=== PATIENT | female | born 1935 | race Caucasian/White ===

== ENCOUNTER 2016-10-31 12:24 | Outpatient (CLI) ==
[2016-10-31 12:30] LABS: BILIRUBIN,URINE 2+ (NEGATIVE); KETONES,URINE 1+ (NEGATIVE); LEUKOCYTE ESTERASE ,URINE Negative (NEGATIVE); NITRITE,URINE Negative (NEGATIVE); PROTEIN,URINE Trace (NEGATIVE); URINE, BLOOD Negative (NEGATIVE)
[2016-10-31 12:36] LABS: ADD URINE MICROSCOPIC YES
[2016-10-31 12:37] LABS: BACTERIA,URINE TRACE (NOT PRESENT)
== END 2016-10-31 12:25 | disposition home or self-care (01) ==
LOC: NONPT 12:24
PROVIDERS: ATTEND Family Medicine
DX: R33.9 Retention of urine, unspecified (principal)
CPT/HCPCS: 81001

== ENCOUNTER 2016-11-29 11:52 | Outpatient (CLI) ==
[2016-11-29 16:44] VITALS: BMI 27.6
== END 2016-11-29 11:53 | disposition home or self-care (01) ==
LOC: AMBL 11:52
PROVIDERS: ATTEND Internal Medicine
DX: R33.9 Retention of urine, unspecified (principal); F03.90 Unspecified dementia, unspecified severity, without behavioral disturbance, psychotic disturbance, mood disturbance, and anxiety; I10 Essential (primary) hypertension; Z87.09 Personal history of other diseases of the respiratory system

== ENCOUNTER 2016-11-29 12:03 | Inpatient (IN) ==
[2016-11-29 13:35] LABS: BASOPHILS # (AUTO) 0.1 K/uL (0-0.2); BASOPHILS % (AUTO) 0.9 % (0.0-3.0); EOSINOPHILS # (AUTO) 0.1 K/ul (0.0-0.7); EOSINOPHILS % (AUTO) 0.6 % (0.0-7.0); HEMATOCRIT 40.2 % (37.0-47.0); HEMOGLOBIN 13.5 g/dl (12.0-16.0); IMMATURE GRANULOCYTE % (AUTO) 0.4 % (0.0-5.0); LYMPHOCYTES # (AUTO) 3.7 K/uL (0.60-3.4); LYMPHOCYTES % (AUTO) 46.6 (10.0-50.0); MEAN CORPUSCULAR HEMOGLOBIN 28.4 pg (27.0-31.0); MEAN CORPUSCULAR HGB CONC 33.6 (31.8-35.4); MEAN CORPUSCULAR VOLUME 84.5 fl (81.0-99.0); MONOCYTES # (AUTO) 0.7 K/uL (0.4-2.0); MONOCYTES % (AUTO) 9.1 (0-10); NEUTROPHILS # (AUTO) 3.4 K/ul (2.0-6.9); NEUTROPHILS % (AUTO) 42.4; PLATELET COUNT 302 10^3/uL (140-440); RED BLOOD COUNT 4.76 10^6/ul (4.20-5.40); WHITE BLOOD COUNT 7.94 K/ul (4.6-10.2)
--- NOTE | 2016-11-29 13:44 | ED.PDOC ---
General ED Provider: Dr. BESSIE SUAREZ Chief Complaint: Urinary Problem Stated Complaint: low urine output Time Seen by Physician: 12:10 Mode of Arrival: Ambulance Information Source: Family, Halfway, EMT Exam Limitations: No limitations Primary Care Provider: MAYCOL MCDONALD Nursing and Triage Documentation Reviewed and Agree: Yes Complaint Exam - Complaint/Exam Onset/Duration: 1 day almost no urine out put pain is declined Symptoms Are: Still present Timing: Constant Initial Severity: Mild Current Severity: Mild Location of Pain: Reports: None Aggravating: Reports: Urination Alleviating: Reports: None Associated Signs and Symptoms: Reports: Decreased urine output. Denies: Diaphoresis, Back pain, Fever, Hematuria, Dysuria, Constipation, Blood in stool , Rectal pain, Appetite change, Nausea, Vomiting, Increased urine frequency, Increased thirst, Decreased activity, Lethargy, Abdominal Pain, Bubble bath use , Vaginal bleeding, Vaginal discharge, Genital swelling, Genital blisters, Retained foreign body Ectopic Risk Factors: Reports: None Ovarian Torsion Risk Factors: Reports: None Surgical Obstruction Risk Factors: Reports: None RH Status: Unknown Related Surgical History: Reports: None Abdominal Findings: Present: None Differential Diagnoses: UTI Review of Systems - Review Of Systems Constitutional: Reports: No symptoms Eyes: Reports: No symptoms Ears, Nose, Mouth, Throat: Reports: No symptoms Respiratory: Reports: No symptoms Cardiac: Reports: No symptoms GI: Reports: No symptoms : Reports: Dysuria Musculoskeletal: Reports: No symptoms Skin: Reports: No symptoms Neurological: Reports: No symptoms Endocrine: Reports: No symptoms Hematologic/Lymphatic: Reports: No symptoms All Other Systems: Reviewed and Negative Past Medical History - Past Medical History Previously Healthy: Yes Endocrine: Reports: Hypothyroid Cardiovascular: Reports: Hypertension Respiratory: Reports: None Hematological: Reports: None Gastrointestinal: Reports: None Genitourinary: Reports: None Neuro/Psych: Reports: None Musculoskeletal: Reports: None Cancer: Reports: None Last Menstrual Period: NA - Surgical History General Surgical History: Reports: None - Family History Family History: Reports: None - Social History Smoking Status: Former smoker Hx Substance Use: No Alcohol Screening: None Physical Exam - Physical Exam Appearance: Ill-appearing Ill-appearing: Moderate Pain Distress: Mild Eyes: RAH, EOMI, Conjunctiva clear ENT: Dry mucosa Respiratory: Airway patent, Breath sounds clear, Breath sounds equal, Respirations nonlabored Cardiovascular: RRR, Pulses normal, No rub, No murmur GI/: Soft, Nontender, No masses, Bowel sounds normal, No Organomegaly Musculoskeletal: Normal strength, ROM intact, No edema, No calf tenderness Skin: Warm, Dry, Normal color Neurological: Sensation intact, Motor intact, Reflexes intact, Cranial nerves intact, Alert, Oriented Psychiatric: Affect appropriate, Mood appropriate Physician Notification - Case Discussed Physician Notified: [email or web address] 2:15 pm Admit To: Inpatient Critical Care Note - Critical Care Note Total Time (mins): 0 Course - Course Hematology/Chemistry: 11/29/16 13:26 Orders, Labs, Meds: Lab Review 11/29/16 13:26 WBC 7.94 RBC 4.76 Hgb 13.5 Hct 40.2 MCV 84.5 MCH 28.4 MCHC 33.6 RDW Coeff of [place] 16.1 H Plt Count 302 Immature Gran % (Auto) 0.4 Neut % (Auto) 42.4 Lymph % (Auto) 46.6 [place] % (Auto) 9.1 Eos % (Auto) 0.6 Baso % (Auto) 0.9 Immature Gran # (Auto) 0.0 Neut # 3.4 Lymph # 3.7 H [place] # 0.7 Eos # 0.1 Baso # 0.1 Orders Category Date Time Status EKG-(ED ONLY) Stat CARDIO 11/29/16 12:13 Completed Bladder [ED BLADDER SCAN] .ONCE EMERGENCY 11/29/16 12:22 Active BLOOD CULTURE Stat LAB 11/29/16 13:26 Received CBC W/ AUTO DIFF Stat LAB 11/29/16 13:26 Completed COMPREHENSIVE METABOLIC PANEL Stat LAB 11/29/16 13:26 Received LACTIC ACID Stat LAB 11/29/16 13:26 Received PROCALCITONIN Stat LAB 11/29/16 13:26 Received URINALYSIS C & S IF INDICATED Stat LAB 11/29/16 13:37 Ordered Vital Signs: Temp Pulse Resp BP Pulse Ox 11/29/16 12:05 98 F 75 16 117/74 98 Departure - Departure Time of Disposition: 14:20 Disposition: ADMITTED INPATIENT Discharge Problem: Urinary symptoms, Dehydration Instructions: Dehydration (ED) Condition: Good Pt referred to PMD for follow-up: Yes (admitt) Additional Instructions: Please call your Family Physician as soon as possible to schedule a follow-up appointment. Allergies/Adverse Reactions: Allergies No Known Allergies Allergy (Unverified 11/29/16 12:05) Home Medications: Ambulatory Orders Aspirin 81 mg PO DAILY 11/29/16 Bisacodyl [Dulcolax] 10 mg RC DAILY PRN 11/29/16 Carbidopa/Levodopa [Sinemet 25-250] 1 tab PO TID 11/29/16 Cholecalciferol (Vitamin D3) [Vitamin D] 50,000 unit PO WEEKLY 11/29/16 Docusate Sodium 100 mg PO DAILY 11/29/16 Donepezil HCl [Aricept] 5 mg PO BEDTIME 11/29/16 Levothyroxine Sodium [Synthroid] 50 mcg PO QDAC 11/29/16 Megestrol Acetate [Megace Es] 625 mg PO DAILY 11/29/16 Metoprolol Tartrate [Lopressor] 50 mg PO BID 11/29/16 Mirtazapine [Remeron] 15 mg PO BEDTIME 11/29/16 Ondansetron HCl [Zofran] 4 mg PO Q6H PRN 11/29/16 Polyethylene Glycol 3350 [Miralax] 17 gm PO BID 11/29/16 Potassium Chloride [Micro-K Cap] 10 meq PO DAILY 11/29/16 Prednisone 5 mg PO DAILYWM 11/29/16 Risperidone [Risperdal] 0.5 mg PO BEDTIME 11/29/16 Rivaroxaban [Xarelto] 20 mg PO DAILY 11/29/16 Simvastatin 40 mg PO DAILY 11/29/16 Disposition Discussed With: Patient, Family
[2016-11-29 13:49] LABS: BILIRUBIN,URINE 1+ (NEGATIVE); KETONES,URINE 1+ (NEGATIVE); LEUKOCYTE ESTERASE ,URINE 1+ (NEGATIVE); NITRITE,URINE Negative (NEGATIVE); PROTEIN,URINE 1+ (NEGATIVE); URINE, BLOOD Negative (NEGATIVE)
[2016-11-29 13:54] LABS: ALBUMIN 2.5 g/dL (3.4-5.0); ALBUMIN/GLOBULIN RATIO 0.69; ANION GAP 17.7; BILIRUBIN,TOTAL 0.45 mg/dL (0.00-1.20); BUN/CREATININE RATIO 13.75; CALCIUM 9.1 mg/dL (8.2-10.2); CREATININE 0.8 mg/dL (0.60-1.30); POTASSIUM 3.7 mmol/L (3.5-5.10); TOTAL PROTEIN 6.1 g/dL (5.8-8.1)
[2016-11-29 13:58] LABS: ADD URINE MICROSCOPIC YES
[2016-11-29 14:00] LABS: BACTERIA,URINE 1+ (NOT PRESENT)
[2016-11-29] MEDS ORDERED: SODIUM CHLORIDE 1,000 ML IV SCH ×2 (14:00→19:20)
[2016-11-29] MEDS ORDERED: ROCEPHIN 1 GM in SODIUM CHLORIDE 50 ML IV STA (14:43)
[2016-11-29] MEDS ORDERED: COCAINE 4% TP STA (14:44)
[2016-11-29] MEDS ORDERED: ROCEPHIN ONE (14:55)
[2016-11-29 16:44] VITALS: BMI 27.6
[2016-11-29] MEDS ORDERED: SINEMET 25-100 ONE (17:46)
[2016-11-29] MEDS: SINEMET 25-250 PO SCH ×2 (18:19→21:26)
[2016-11-29 20:44] LABS: TROPONIN I 0.027 ng/ml (0.0000-0.4000)
[2016-11-29] MEDS: LOPRESSOR PO SCH (21:25)
[2016-11-30 05:13] LABS: BASOPHILS # (AUTO) 0.1 K/uL (0-0.2); BASOPHILS % (AUTO) 0.8 % (0.0-3.0); EOSINOPHILS # (AUTO) 0.1 K/ul (0.0-0.7); EOSINOPHILS % (AUTO) 0.8 % (0.0-7.0); HEMATOCRIT 37.4 % (37.0-47.0); HEMOGLOBIN 12.5 g/dl (12.0-16.0); IMMATURE GRANULOCYTE % (AUTO) 0.6 % (0.0-5.0); LYMPHOCYTES # (AUTO) 2.7 K/uL (0.60-3.4); MEAN CORPUSCULAR HGB CONC 33.4 (31.8-35.4); MEAN CORPUSCULAR VOLUME 83.9 fl (81.0-99.0); MONOCYTES # (AUTO) 0.7 K/uL (0.4-2.0); MONOCYTES % (AUTO) 10.6 (0-10); NEUTROPHILS % (AUTO) 46.2; PLATELET COUNT 272 10^3/uL (140-440); RED BLOOD COUNT 4.46 10^6/ul (4.20-5.40); WHITE BLOOD COUNT 6.54 K/ul (4.6-10.2)
[2016-11-30] MEDS: SYNTHROID PO SCH (05:35)
[2016-11-30 05:46] LABS: ALANINE AMINOTRANSFERASE < 6 U/L (12-78); ALBUMIN 2.1 g/dL (3.4-5.0); ALBUMIN/GLOBULIN RATIO 0.68; ALKALINE PHOSPHATASE 58 U/L (53-141); ANION GAP 15.5; ASPARTATE AMINO TRANSFERASE 17 U/L (15-37); BLOOD UREA NITROGEN 12 mg/dL (7-18); BUN/CREATININE RATIO 15.38; CALCIUM 8.4 mg/dL (8.2-10.2); CARBON DIOXIDE 24 mmol/L (23-31); CHLORIDE 103 mmol/L (98-107); CREATININE 0.78 mg/dL (0.60-1.30); GLUCOSE 69 mg/dL (82-115); POTASSIUM 3.5 mmol/L (3.5-5.10); SODIUM 139 mmol/L (136-145); TOTAL PROTEIN 5.2 g/dL (5.8-8.1)
[2016-11-30 05:47] LABS: TROPONIN I 0.028 ng/ml (0.0000-0.4000)
[2016-11-30] MEDS ORDERED: NON-FORMULARY MEDICATION (Rivaroxaban [Xarelto] 20 MG) PO SCH (09:00)
[2016-11-30] MEDS ORDERED: ROCEPHIN 1 GM in SODIUM CHLORIDE 50 ML IV SCH (09:00)
[2016-11-30] MEDS ORDERED: MEGESTROL ACETATE 625 MG PO SCH (09:00)
[2016-11-30] MEDS: SINEMET 25-250 PO SCH ×3 (09:02→21:48)
[2016-11-30] MEDS: XARELTO PO SCH (09:03)
[2016-11-30] MEDS: ZOCOR PO SCH (09:03)
[2016-11-30] MEDS: ASPIRIN CHEWABLE PO SCH (09:03)
[2016-11-30] MEDS: MICRO-K CAP PO SCH (09:04)
[2016-11-30] MEDS: SODIUM CHLORIDE 1,000 ML IV SCH (09:07)
[2016-11-30] MEDS: MEGACE PO SCH (10:24)
--- NOTE | 2016-11-30 10:24 | PN ---
DATE OF SERVICE: 11/29/16 SUBJECTIVE: The patient is an 81 year old white female seen in the emergency room. The patient needs to be admitted because of strong possibility of UTI with dehydration. The patient is 81 year old female; moved from [place], [place] in October. The patient's son-in-law is in the room. The patient is demented but alert. She is a former smoker. The patient has history of coronary artery disease, dementia, atrial fibrillation. EKG showed shows atrial fibrillation with irregular rate. REVIEW OF SYSTEMS: CONSTITUTIONAL: No night sweats. No fatigue, malaise, lethargy. No fever or chills. HEENT: Eyes: No visual changes. No eye pain. No eye discharge. ENT: No runny nose. No epistaxis. No sinus pain. No sore throat. No odynophagia. No congestion. RESPIRATORY: No cough, no congestion. No hemoptysis. No shortness of breath. CARDIOVASCULAR: No angina symptoms. No CHF symptoms. No atypical chest pain for CAD. No palpitations. No orthopnea. GASTROINTESTINAL: No abdominal pain. No nausea or vomiting. No diarrhea or constipation. No hematemesis. No hematochezia. GENITOURINARY: No urgency. No frequency. No dysuria. No hematuria. No obstructive symptoms. No discharge. No pain. No significant abnormal bleeding. MUSCULOSKELETAL: No musculoskeletal pain; no joint swelling. NEUROLOGICAL: No headache. No neck pain. No syncope. No seizures. No dizziness. PSYCHIATRIC: Not anxious. No depression. No suicidal thoughts. No homicidal thoughts. SKIN: No rash. No lesions. No wounds. ENDOCRINE: No unexplained weight loss. No weight gain. HEMATOLOGIC/LYMPHATIC: No anemia. No purpura. No petechiae. No prolonged or excessive bleeding. No palpable lymph nodes. PHYSICAL EXAMINATION: GENERAL: The patient is , lying/sitting in bed in no distress. VITAL SIGNS: Temperature 96.8, pulse 80, respiratory ate 15, blood pressure 130 /70. HEENT: Head normocephalic, atraumatic. Eyes: Extraocular muscles are intact. Pupils are equal, round and reactive to light and accommodation. Ears: No lesions. Nose appeared normal. Throat: No exudate or erythema. Mucosa Membrane dry. NECK: Supple. No JVD, no carotid bruit. No lymphadenopathy or thyromegaly. LUNGS:Decreased breath sounds but clear to auscultation. Percussion note normal. Chest symmetrical. HEART: S1, S2, no S3. No murmurs. No cyanosis or clubbing. No ascites. Pulses: Dorsalis pedis and posterior tibial pulses +1 to +2 both sides. ABDOMEN: Soft. Nontender. Bowel sounds active. No CVA tenderness. No mass felt. EXTREMITIES: No edema. Full range of motion of all extremities, equal. NEUROLOGIC: No focal deficit. Cranial nerves II through XII are grossly intact. No headache, no double vision or headache. SKIN: Dry. Intact. Turgor - normal. LYMPHATIC: No palpable lymph nodes/no lymphedema. MUSCULOSKELETAL: Normal joints with no swelling. Muscle tone is normal. ASSESSMENT: 1. Dehydration 2. UTI, The patient was sent from Shelter as Intake is very poor with poor urine output for past 48 hours likely cause of change in the patient's over status could be UTI. 3. Atrial fibrillation 4. Coronary artery disease 5. Dementia PLAN: 1. Give IV fluids 2. Rocephin The patient has not been able to walk for 6 months according to son-in-law. The patient's used to walk with walker but then her condition deteriorated. The place she was being taken care of in [place], [place] son-in-law and daughter didn't like it so they moved her down here to [place]. CONDITION: Stable. TIME SPENT: More than 30 minutes. Plan and coordination of the patient's care discussed in the presence of nurse. JOSSELYN
[2016-11-30] MEDS: LOPRESSOR PO SCH ×2 (10:25→21:47)
--- NOTE | 2016-11-30 13:19 | PCM.PROG ---
Attending Provider: ATTENDING PROVIDER: Dr. KRISTIN BARRETO DATE OF SERVICE: 11/30/16 SUBJECTIVE: This 81 year old WHITE/ F was hospitalized 11/29/16. The patient is seen with Samantha, Nurse Practitioner. The patient is alert. She denies any nausea or vomiting. No fever. Urine culture pending. REVIEW OF SYSTEMS: CONSTITUTIONAL: Weakness. No night sweats. No fever or chills. HEENT: Eyes: No visual changes. No eye pain. No eye discharge. ENT: No runny nose. No epistaxis. No sinus pain. No odynophagia. No congestion. RESPIRATORY: No cough, no congestion. No hemoptysis. No shortness of breath. CARDIOVASCULAR: No angina symptoms. No CHF symptoms. No atypical chest pain for CAD. No palpitations. No orthopnea.. GASTROINTESTINAL: No abdominal pain. No nausea or vomiting. No diarrhea or constipation. No hematemesis. No hematochezia. GENITOURINARY: No urgency. No frequency. No dysuria. No hematuria. No obstructive symptoms. No discharge. No pain. No significant abnormal bleeding. MUSCULOSKELETAL: No musculoskeletal pain; no joint swelling. NEUROLOGICAL: Awake, alert, oriented to time, place and person. No headache. No neck pain. No syncope. No seizures. No dizziness. PSYCHIATRIC: Not anxious. No depression. No suicidal thoughts. No homicidal thoughts. SKIN: No rash. No lesions. No wounds. ENDOCRINE: No unexplained weight loss. No weight gain. HEMATOLOGIC/LYMPHATIC: No anemia. No purpura. No petechiae. No prolonged or excessive bleeding. No palpable lymph nodes. PHYSICAL EXAMINATION: GENERAL: The patient is awake, alert and oriented, lying in bed in no distress. VITAL SIGNS: Temperature 97.0 F, Pulse 75, Respiratory Rate 20, BP 116/75, Pulse Ox 97% HEENT: Head normocephalic, atraumatic. Eyes: Extraocular muscles are intact. Pupils are equal, round and reactive to light and accommodation. Ears: No lesions. Nose appeared normal. Throat: No exudate or erythema. NECK: Supple. No JVD, no carotid bruit. No lymphadenopathy or thyromegaly. LUNGS: Diminished breath sounds bilaterally. Clear to auscultation. Percussion note normal. Chest symmetrical. HEART: S1, S2, no S3. No murmurs. No cyanosis or clubbing. No ascites. Pulses: Dorsalis pedis and posterior tibial pulses +1 to +2 both sides. ABDOMEN: Soft. Non-tender. Bowel sounds active. No CVA tenderness. No mass felt. EXTREMITIES: No edema. Full range of motion of all extremities, equal. NEUROLOGIC: No focal deficit. Cranial nerves II through XII are grossly intact. No headache, no double vision or headache. SKIN: Not dry. Intact. Turgor-normal. LYMPHATIC: No palpable lymph nodes/no lymphedema. MUSCULOSKELETAL: Normal joints with no swelling. Muscle tone is normal. LAB REVIEW: 11/30/16 04:20 11/30/16 04:20 11/30/16 04:20: WBC 6.54, RBC 4.46, Hgb 12.5, Hct 37.4, MCV 83.9, MCH 28.0, MCHC 33.4, RDW Coeff of [place] 16.2 H, Plt Count 272, Immature Gran % (Auto) 0.6, Neut % (Auto) 46.2, Lymph % (Auto) 41.0, [place] % (Auto) 10.6 H, Eos % (Auto) 0.8 , Baso % (Auto) 0.8, Immature Gran # (Auto) 0.0, Neut # 3.0, Lymph # 2.7, [place] # 0.7, Eos # 0.1, Baso # 0.1, Sodium 139, Potassium 3.5, Chloride 103, Carbon Dioxide 24, Anion Gap 15.5, BUN 12, Creatinine 0.78, Estimated GFR (MDRD) 71.00 , BUN/Creatinine Ratio 15.38, Glucose 69 L, Calcium 8.4, Total Bilirubin 0.30, AST 17, ALT < 6 L, Alkaline Phosphatase 58, Total Creatine Kinase 22, Troponin I 0.0280, Total Protein 5.2 L, Albumin 2.1 L, Globulin 3.1, Albumin/Globulin Ratio 0.68 11/29/16 20:15: Total Creatine Kinase 22, Troponin I 0.0270 ASSESSMENT: 1. Dehydration/weakness 2. UTI PLAN: 1. Rocephin 1 gm IV q.24hr 2. Decrease IV fluids to 40 mL/hr 3. Resume Aricept 4. Resume Risperdal Plan and coordination of the patient's care discussed in the presence of Microbiology Technician and nurse. CONDITION: Stable SCRIBED BY: TAO NGUYEN Ch[employer] Pepper Grinder scribed while in presence of service performed by Dr. KRISTIN BARRETO/SAMANTHA KENNEDY APRN on 11/30/16 ([id number])
[2016-11-30] MEDS ORDERED: ARICEPT PO SCH (21:00)
[2016-11-30] MEDS: MIRALAX PO SCH (21:48)
[2016-12-01 05:46] LABS: BASOPHILS # (AUTO) 0.1 K/uL (0-0.2); BASOPHILS % (AUTO) 0.8 % (0.0-3.0); EOSINOPHILS # (AUTO) 0.1 K/ul (0.0-0.7); HEMATOCRIT 39.8 % (37.0-47.0); HEMOGLOBIN 13.3 g/dl (12.0-16.0); IMMATURE GRANULOCYTE % (AUTO) 0.7 % (0.0-5.0); LYMPHOCYTES # (AUTO) 2.6 K/uL (0.60-3.4); LYMPHOCYTES % (AUTO) 33.6 (10.0-50.0); MEAN CORPUSCULAR HGB CONC 33.4 (31.8-35.4); MEAN CORPUSCULAR VOLUME 83.8 fl (81.0-99.0); MONOCYTES # (AUTO) 0.8 K/uL (0.4-2.0); MONOCYTES % (AUTO) 10.8 (0-10); NEUTROPHILS # (AUTO) 4.1 K/ul (2.0-6.9); NEUTROPHILS % (AUTO) 53.1; PLATELET COUNT 258 10^3/uL (140-440); RED BLOOD COUNT 4.75 10^6/ul (4.20-5.40); WHITE BLOOD COUNT 7.65 K/ul (4.6-10.2)
[2016-12-01] MEDS: SYNTHROID PO SCH (06:06)
[2016-12-01 06:10] LABS: ALANINE AMINOTRANSFERASE < 6 U/L (12-78); ALBUMIN 2.3 g/dL (3.4-5.0); ALBUMIN/GLOBULIN RATIO 0.66; ALKALINE PHOSPHATASE 60 U/L (53-141); ANION GAP 18.1; ASPARTATE AMINO TRANSFERASE 15 U/L (15-37); BILIRUBIN,TOTAL 0.31 mg/dL (0.00-1.20); BLOOD UREA NITROGEN 11 mg/dL (7-18); BUN/CREATININE RATIO 12.94; CALCIUM 8.8 mg/dL (8.2-10.2); CARBON DIOXIDE 23 mmol/L (23-31); CHLORIDE 104 mmol/L (98-107); CREATININE 0.85 mg/dL (0.60-1.30); GLUCOSE 85 mg/dL (82-115); POTASSIUM 4.1 mmol/L (3.5-5.10); SODIUM 141 mmol/L (136-145); TOTAL PROTEIN 5.8 g/dL (5.8-8.1)
--- NOTE | 2016-12-01 06:47 | HP ---
DATE OF SERVICE: 11/29/16 HISTORY OF PRESENT ILLNESS: This is an 81-year-old female who is a patient at [place] of Dr. Malagon. The care home reported that she had had decreased appetite, weakness and decreased urine output for the past two days. When she arrived, labs were fairly normal. Kidney function was stable; however, her UA showed 3+ bacteria, blood and was nitrite positive. She was started on Rocephin 1 gm q.24hr. The patient is new to the area, she just moved here in October from [place], [place], because her daughter lives here. PAST MEDICAL HISTORY: Parkinson's syndrome Dementia Hypothyroidism Hypertension Restless leg syndrome Hypokalemia Atrial fibrillation Dyslipidemia SOCIAL HISTORY: The patient currently resides in [facility]. She does not smoke. She does not drink. Her past smoking history is unclear. She recently was able to walk until about 6 months ago due to advancing dementia and peripheral vascular disease, she is now in a wheelchair. REVIEW OF SYSTEMS: CONSTITUTIONAL: Decreased appetite. No night sweats. No fatigue, malaise, lethargy. No fever or chills. HEENT: Eyes: No visual changes. No eye pain. No eye discharge. ENT: No runny nose. No epistaxis. No sinus pain. No sore throat. No odynophagia. No ear pain. No congestion. RESPIRATORY: No cough, no congestion. No hemoptysis. No shortness of breath. CARDIOVASCULAR: No angina symptoms. No CHF symptoms. No atypical chest pain for CAD. No palpitations. No orthopnea. GASTROINTESTINAL: Positive for nausea, decreased appetite. No abdominal pain. No vomiting. No diarrhea or constipation. No hematemesis. No hematochezia. GENITOURINARY: Decreased urine output. No dysuria. No hematuria. No obstructive symptoms. No discharge. No pain. No significant abnormal bleeding. MUSCULOSKELETAL: Positive for leg weakness. No joint swelling. No redness. NEUROLOGICAL: The patient is alert, however not oriented. No headache. No neck pain. No syncope. No seizures. No dizziness. PSYCHIATRIC: Not anxious. No depression. No suicidal thoughts. No homicidal thoughts. SKIN: No rash. No lesions. No wounds. ENDOCRINE: No unexplained weight loss. No weight gain. HEMATOLOGIC/LYMPHATIC: No anemia. No purpura. No petechiae. No prolonged or excessive bleeding. No palpable lymph nodes. MEDICATIONS: Xarelto 20 mg p.o. daily Cholecalciferol 50,000 unit p.o. weekly Simvastatin 40 mg p.o. daily Risperidone 0.5 mg p.o. bedtime Remeron 15 mg p.o. bedtime Prednisone 5 mg p.o. daily with meal Potassium Chloride 10 mEq p.o. daily Polyethylene Glycol 17 gm p.o. b.i.d. Megace 625 mg p.o. daily Lopressor 50 mg p.o. b.i.d. Dulcolax 10 mg RC daily p.r.n. Docusate 100 mg p.o. daily Aspirin 81 mg p.o. daily Aricept 5 mg p.o. bedtime Zofran 4 mg p.o. q.6h p.r.n. Carbidopa/Levodopa one tab p.o. t.i.d. Levothyroxine 50 mcg p.o. q.d a.c. ALLERGIES: NKDA PHYSICAL EXAMINATION: VITAL SIGNS: Stable; temperature 97, heart rate 75, respirations 20, BP 116/75 , pulse ox 97%. HEENT: Head normocephalic, atraumatic. Eyes: Extraocular muscles are intact. Pupils are equal, round and reactive to light and accommodation. Ears: No lesions. Nose appeared normal. Throat: No exudate or erythema. NECK: Supple. No JVD, no carotid bruit. No lymphadenopathy or thyromegaly. LUNGS: Clear to auscultation with diminished breath sounds bilaterally, equal. No rhonchi, no rales. Percussion note normal. Chest symmetrical. HEART: Irregular rate and rhythm due to atrial fibrillation. S1, S2, no S3. Pulses: Dorsalis pedis and posterior tibial pulses +1 to +2 both sides. ABDOMEN: Soft. Nontender. Bowel sounds active times four quadrants. No CVA tenderness. No suprapubic tenderness. EXTREMITIES: No edema. No cyanosis. No joint swelling. No redness. Negative Sung's sign. NEUROLOGIC: The patient is alert, oriented to person however not to place or time. SKIN: Not dry. Intact. Turgor - normal. LYMPHATIC: No palpable lymph nodes/no lymphedema. MUSCULOSKELETAL: Normal joints with no swelling. Muscle tone is normal. LABS: Hemoglobin 12.5, hematocrit 37.4, platelets 272, white count 6.5. Sodium 139, potassium 3.5, BUN 12, creatinine 0.78, glucose 69. Urine culture is pending. ASSESSMENT: 1. DEHYDRATION 2. GENERALIZED WEAKNESS 3. ACUTE URINARY TRACT INFECTION 4. DEMENTIA 5. ATRIAL FIBRILLATION PLAN: 1. Will admit the patient. 2. Continue IV Rocephin 1 gm q.24hr. 3. IV fluids at 75 cc an hour. 4. Sodium Chloride. 5. Continue home medications. 6. Routine telemetry orders. 7. CBC, CMP daily. 8. Daily weights. 9. Regular diet. 10. Will follow closely. TIME SPENT: More than 70 minutes. MTDD
[2016-12-01] MEDS: MEGACE PO SCH (08:30)
[2016-12-01] MEDS: ASPIRIN CHEWABLE PO SCH (08:31)
[2016-12-01] MEDS: LOPRESSOR PO SCH (08:31)
[2016-12-01] MEDS: XARELTO PO SCH (08:31)
[2016-12-01] MEDS: MICRO-K CAP PO SCH (08:32)
[2016-12-01] MEDS: SINEMET 25-250 PO SCH ×2 (08:32→15:10)
[2016-12-01] MEDS: MIRALAX PO SCH (08:37)
[2016-12-01] MEDS: ZOCOR PO SCH (08:37)
[2016-12-01] MEDS ORDERED: LIDOCAINE 1 % AMP 5 ML (SUTURES) IM SCH (09:00)
[2016-12-01] MEDS ORDERED: ROCEPHIN IM SCH (09:00)
--- NOTE | 2016-12-01 09:50 | PCM.PROG ---
Attending Provider: [facility]ENDING [facility] DATE [facility]: 12/01/16 SUBJECTIVE: This 81 year old WHITE/ F was hospitalized 11/29/16. The patient is seen with Samantha, Nurse Practitioner. The patient is sitting in the chair, resting comfortably, has been afebrile. REVIEW OF SYSTEMS: CONSTITUTIONAL: Confusion. Weakness left leg. No night sweats. No fatigue, malaise, lethargy. No fever or chills. HEENT: Eyes: No visual changes. No eye pain. No eye discharge. ENT: No runny nose. No epistaxis. No sinus pain. No odynophagia. No congestion. RESPIRATORY: No cough, no congestion. No hemoptysis. No shortness of breath. CARDIOVASCULAR: No angina symptoms. No CHF symptoms. No atypical chest pain for CAD. No palpitations. No orthopnea.. GASTROINTESTINAL: No abdominal pain. No nausea or vomiting. No diarrhea or constipation. No hematemesis. No hematochezia. GENITOURINARY: No urgency. No frequency. No dysuria. No hematuria. No obstructive symptoms. No discharge. No pain. No significant abnormal bleeding. MUSCULOSKELETAL: No musculoskeletal pain; no joint swelling. NEUROLOGICAL: Alert and oriented to person only. No headache. No neck pain. No syncope. No seizures. No dizziness. PSYCHIATRIC: Not anxious. No depression. No suicidal thoughts. No homicidal thoughts. SKIN: No rash. No lesions. No wounds. ENDOCRINE: No unexplained weight loss. No weight gain. HEMATOLOGIC/LYMPHATIC: No anemia. No purpura. No petechiae. No prolonged or excessive bleeding. No palpable lymph nodes. PHYSICAL EXAMINATION: GENERAL: The patient is alert and oriented to person only, sitting in chair in no distress. VITAL SIGNS: Temperature 97.6 F, Pulse 73, Respiratory Rate 16, BP 129/80, Pulse Ox 96% HEENT: Head normocephalic, atraumatic. Eyes: Extraocular muscles are intact. Pupils are equal, round and reactive to light and accommodation. Ears: No lesions. Nose appeared normal. Throat: No exudate or erythema. NECK: Supple. No JVD, no carotid bruit. No lymphadenopathy or thyromegaly. LUNGS: Diminished breath sounds bilaterally. Clear to auscultation. Percussion note normal. Chest symmetrical. HEART: Irregular heart rate. S1, S2, no S3. No murmurs. No cyanosis or clubbing. No ascites. Pulses: Dorsalis pedis and posterior tibial pulses +1 to +2 both sides. ABDOMEN: Soft. Non-tender. Bowel sounds active. No CVA tenderness. No mass felt. EXTREMITIES: No edema. Full range of motion of all extremities, equal. NEUROLOGIC: No focal deficit. Cranial nerves II through XII are grossly intact. No headache, no double vision or headache. SKIN: Not dry. Intact. Turgor-normal. LYMPHATIC: No palpable lymph nodes/no lymphedema. MUSCULOSKELETAL: Normal joints with no swelling. Muscle tone is normal. LAB REVIEW: 12/01/16 05:15 12/01/16 05:15 12/01/16 05:15: WBC 7.65, RBC 4.75, Hgb 13.3, Hct 39.8, MCV 83.8, MCH 28.0, MCHC 33.4, RDW Coeff of [place] 16.0 H, Plt Count 258, Immature Gran % (Auto) 0.7, Neut % (Auto) 53.1, Lymph % (Auto) 33.6, [place] % (Auto) 10.8 H, Eos % (Auto) 1.0 , Baso % (Auto) 0.8, Immature Gran # (Auto) 0.1, Neut # 4.1, Lymph # 2.6, [place] # 0.8, Eos # 0.1, Baso # 0.1, Sodium 141, Potassium 4.1, Chloride 104, Carbon Dioxide 23, Anion Gap 18.1, BUN 11, Creatinine 0.85, Estimated GFR (MDRD) 64.00 , BUN/Creatinine Ratio 12.94, Glucose 85, Calcium 8.8, Total Bilirubin 0.31, AST 15, ALT < 6 L, Alkaline Phosphatase 60, Total Protein 5.8, Albumin 2.3 L, Globulin 3.5, Albumin/Globulin Ratio 0.66 ASSESSMENT: 1. DEHYDRATION, RESOLVED 2. GENERALIZED WEAKNESS 3. ACUTE URINARY TRACT INFECTION 4. DEMENTIA 5. ATRIAL FIBRILLATION PLAN: 1. Rocephin IM today 2. D/C to [place] today 3. Keflex 500 mg t.i.d. for 7 days - begin tomorrow 4. Repeat CBC and CMP in one week Plan and coordination of the patient's care discussed in the presence of Felt Tipping Machine Tender and nurse. CONDITION: Stable SCRIBED BY: TAO NGUYEN Propeller Mechanic scribed while in presence of service performed by Dr. KRISTIN BARRETO[facility]/SAMANTHA KENNEDY APRN on 12/01/16 ([id number])
--- NOTE | 2016-12-01 10:40 | CM.DICTOOL ---
ADMISSION: 11/29/16 15:10 DISCHARGE: 12/01/16 TO [facility] DATE OF SERVICE: 12/01/16 FINAL DIAGNOSIS DEHYDRATION WEAKNESS UTI (GRAM POSITIVE COCCI) COPD DYSLIPIDEMIA DEMENTIA ALZHEIMER'S DISEASE CAD CHF VENOUS INSUFFICIENCY, CHRONIC RHEUMATOID ARTHRITIS DYSPHAGIA, OROPHARYNGEAL PHASE URINARY RETENTION AUDITORY HALLUCINATIONS HISTORY OF TB HYPOTHYROIDISM PARKINSON'S DISEASE ESSENTIAL PRIMARY HYPERTENSION ATRIAL FIBRILLATION HISTORY OF DVT GERD OSTEOPOROSIS RIGHT MASTECTOMY LAST VITALS Temp Pulse Resp BP Pulse Ox 97.6 F 73 16 129/80 96 12/01/16 05:39 12/01/16 05:39 12/01/16 05:39 12/01/16 05:39 12/01/16 05:39 ACTIVE MEDICATIONS Aspirin (Aspirin Chewable) 81 mg PO DAILYWM [facility] Last Admin: 11/30/16 09:03 Dose: 81 mg Bisacodyl (Dulcolax) 10 mg RC DAILY PRN Carbidopa/Levodopa (Sinemet 25-250) 1 tab PO TID [facility] Last Admin: 11/30/16 21:48 Dose: 1 tab Cholecalciferol (Vitamin D3) (Vitamin D) 50,000 Units PO WEEKLY Docusate Sodium 100 mg PO DAILY Donepezil HCl (Aricept) 5 mg PO BEDTIME [facility] Last Admin: 11/30/16 21:48 Dose: 5 mg Levothyroxine Sodium (Synthroid) 50 mcg PO QDAC [facility] Last Admin: 12/01/16 06:06 Dose: 50 mcg Megestrol Acetate (Megace) 800 mg PO DAILY [facility] Last Admin: 11/30/16 10:24 Dose: 800 mg Metoprolol Tartrate (Lopressor) 50 mg PO BID [facility] Last Admin: 11/30/16 21:47 Dose: 50 mg Mirtazapine (Remeron) 15 mg PO BEDTIME Ondansetron HCL (Zofran) 4 mg PO Q6H PRN Polyethylene Glycol (Miralax) 17 gm PO BID [facility] Last Admin: 11/30/16 21:48 Dose: 17 gm Potassium Chloride (Micro-K Cap) 10 meq PO DAILY [facility] Last Admin: 11/30/16 09:04 Dose: 10 meq Risperidone (Risperdal) 0.5 mg PO BEDTIME [facility] Rivaroxaban (Xarelto) 20 mg PO DAILY [facility] Last Admin: 11/30/16 09:03 Dose: 20 mg Simvastatin (Zocor) 40 mg PO DAILY [facility] Last Admin: 11/30/16 09:03 Dose: 40 mg ALLERGIES No Known Allergies Allergy (Unverified 11/29/16 12:05) NEW PRESCRIPTIONS: DO NOT RESUME PREDNISONE KEFLEX 500 MG PO TID X 7 DAYS SMOKING: NONSMOKER LAB REVIEW: 12/01/16 05:15 12/01/16 05:15 12/01/16 05:15: WBC 7.65, RBC 4.75, Hgb 13.3, Hct 39.8, MCV 83.8, MCH 28.0, MCHC 33.4, RDW Coeff of Aziza 16.0 H, Plt Count 258, Immature Gran % (Auto) 0.7, Neut % (Auto) 53.1, Lymph % (Auto) 33.6, [place] % (Auto) 10.8 H, Eos % (Auto) 1.0 , Baso % (Auto) 0.8, Immature Gran # (Auto) 0.1, Neut # 4.1, Lymph # 2.6, [place] # 0.8, Eos # 0.1, Baso # 0.1, Sodium 141, Potassium 4.1, Chloride 104, Carbon Dioxide 23, Anion Gap 18.1, BUN 11, Creatinine 0.85, Estimated GFR (MDRD) 64.00 , BUN/Creatinine Ratio 12.94, Glucose 85, Calcium 8.8, Total Bilirubin 0.31, AST 15, ALT < 6 L, Alkaline Phosphatase 60, Total Protein 5.8, Albumin 2.3 L, Globulin 3.5, Albumin/Globulin Ratio 0.66 PLAN: DISCHARGE BACK TO [facility] TODAY RESUME YOUR HALFWAY MEDICATIONS PER LIST PROVIDED BY THE NURSING STAFF DO NOT RESUME PREDNISONE NEW MEDICATIONS: KEFLEX 500 MG PO TID X 7 DAYS LABS: CBC WITH DIFF AND CMP IN ONE WEEK THEN: ROUTINE LABS: CBC MONTHLY. CMP, TSH AND FREE T4, LIPID PANEL Q 6 MONTHS U/A WITH C/S PRN ACTIVITY: MAY PARTICIPATE IN HALFWAY ACTIVITY PROGRAM TOLERATED PT/OT/SPEECH PLEASE EVALUATE AND TREAT IF INDICATED KEEP FEET/LEGS ELEVATED FREQUENTLY POSSIBLE DIET: REGULAR TEXTURE, REGULAR CONSISTENCY MIGHTY SHAKE TID WITH MEALS. NO CHOCOLATE CLAM DREDGE BOAT CAPTAIN PLEASE CONSULT FOR OPTIMAL NUTRITIONAL NEEDS OTHER: VS DAILY WITH OXIMETRY MEASUREMENTS Q SHIFT (COPD) OXYGEN EVERY EVENING AND SUNDAYS SKIN BREAKDOWN PREVENTION MEASURES SUMMARY: THE PATIENT IS ALERT AND ORIENTED TO PERSON. SHE IS ABLE TO CONVERSE AND MAKE HER WANTS AND NEEDS KNOWN. SHE REQUIRES COMPLETE CARE FOR ADL'S AND IS NOT AMBULATORY. SHE IS UNABLE TO BEAR WEIGHT FOR TRANSFERS WITHOUT HEAVY ASSISTANCE X 2 STAFF MEMBERS. SHE WILL RETURN TO [facility] AT DISCHARGE. THE SKIN TURGOR IS FRAGILE. MS. VILLA HAS A SKIN TEAR PRESENT ON ADMISSION TO THE LEFT HAND. THE HALFWAY WILL RESUME SKIN CARE UPON THE PATIENT'S RETURN THERE. CURRENT CODE STATUS: CPR JULIETTE KENNEDY, SUPERVISOR DOPING KRISTIN BARRETO M.D.
[2016-12-01] MEDS: SODIUM CHLORIDE 1,000 ML IV SCH (10:53)
[2016-12-01] MEDS ORDERED: DULCOLAX RC STA (12:18)
[2016-12-01] MEDS ORDERED: DULCOLAX RC ONE (12:37)
[2016-12-01 15:22] VITALS: BP 117/81; TEMP 97.8
[2016-12-01] MEDS ORDERED: RISPERDAL PO SCH (21:00)
[2016-12-02] MEDS ORDERED: LIDOCAINE HCL 1% SDV IM SCH (09:00)
--- NOTE | 2016-12-02 13:46 | PN ---
DATE OF SERVICE: 12/01/16 SUBJECTIVE: Ms. Myers was hospitalized with urinary tract infection, dehydration. The patient has been treated with Rocephin. The patient was discharged on Antibiotics. The patient had positive gram cocci from the urine culture. At the time of discharge the patient was afebrile. Her mental status improved to some extent but she was still confused but alert. Her appetite improved. Her hydration status improved. PHYSICAL EXAMINATION: GENERAL: The patient is . VITAL SIGNS: HEENT: Head normocephalic, atraumatic. Eyes: Extraocular muscles are intact. Pupils are equal, round and reactive to light and accommodation. Ears: No lesions. Nose appeared normal. Throat: No exudate or erythema. NECK: Supple. No JVP, no carotid bruit. No lymphadenopathy or thyromegaly. LUNGS: Decreased breath sounds. Clear to auscultation. Percussion note normal. Chest symmetrical. HEART: S1, S2, no S3. No murmurs. No cyanosis or clubbing. No ascites. Pulses: Dorsalis pedis and posterior tibial pulses +1 to +2 both sides. ABDOMEN: Soft. Nontender. Bowel sounds active. No CVA tenderness. No mass felt. EXTREMITIES: No edema. Full range of motion of all extremities, equal. NEUROLOGIC: No focal deficit. Cranial nerves II through XII are grossly intact. No headache, no double vision or headache. SKIN: Not dry. Intact. Turgor - normal. LYMPHATIC: No palpable lymph nodes/no lymphedema. MUSCULOSKELETAL: Normal joints with no swelling. Muscle tone is normal. PLAN: 1. The patient will have echocardiogram before discharge 2. The patient is to be discharged to Dr. Santos, the patient resides in the [facility]. CONDITION: Stable TIME SPENT: More than 30 minutes. Plan and coordination of the patient's care discussed in the presence of nurse. JOSSELYN
--- NOTE | 2016-12-02 13:47 | PN ---
11/29/16: Level 5 11/30/16: Intermediate 12/01/16: D as discharge MTDD
--- NOTE | 2016-12-02 14:55 | PN ---
DATE OF SERVICE: 11/30/16 SUBJECTIVE: 81 year old white female hospitalized with urinary tract infection and dehydration. The patient's condition has improved. her dehydration status has improved. Skin turgor is a lot better. PHYSICAL EXAMINATION: GENERAL: The patient is VITAL SIGNS: HEENT: Head normocephalic, atraumatic. Eyes: Extraocular muscles are intact. Pupils are equal, round and reactive to light and accommodation. Ears: No lesions. Nose appeared normal. Throat: No exudate or erythema. NECK: Supple. No JVD, no carotid bruit. No lymphadenopathy or thyromegaly. LUNGS: Decreased breath sounds but clear to auscultation. Percussion note normal. Chest symmetrical. HEART: S1, S2, no S3. No murmurs. No cyanosis or clubbing. No ascites. Pulses: Dorsalis pedis and posterior tibial pulses +1 to +2 both sides. The patient is in atrial fibrillation. ABDOMEN: Soft. Nontender. Bowel sounds active. No CVA tenderness. No mass felt. EXTREMITIES: No edema. Full range of motion of all extremities, equal. NEUROLOGIC: No focal deficit. Cranial nerves II through XII are grossly intact. No headache, no double vision or headache. SKIN: Not dry. Intact. Turgor - normal. LYMPHATIC: No palpable lymph nodes/no lymphedema. MUSCULOSKELETAL: Normal joints with no swelling. Muscle tone is normal. PLAN: 1. On IV fluid and no fluid overload 2. Rocephin CONDITION: Stable The patient was seen and examined with Nurse Practitioner. TIME SPENT: More than 30 minutes. Plan and coordination of the patient's care discussed in the presence of nurse. JOSSELYN
--- NOTE | 2016-12-07 13:16 | ECHO2D ---
Date of Exam: 12/01/16 Ordering Physician: KRISTIN BARRETO Room #: 114 Reason for Echo: WEAKNESS, DIZZINESS M-Mode Normal Adult Results LV Dimensions Normal Adult Results AoV Opening excursions >1.6 >1.6 LVEDD-base- 3.5-5.8 4.3 Ao root dimensions 2.0-3.7 2.8 LVESD-base- 3.1-4.6 L. Atrium dimensions 1.9-3.8 4.7 Post. Wall thickness 0.8-1.1 1.2 IV septum (thickness) 0.7-1.2 1.2 Post. Wall excursion 0.72-1.3 NORMAL Septal motion NORMAL Systolic motion R. Ventricular cavity 1.5-2.0 NORMAL LVEF 60% 50% Paradoxical septal wall motion NORMAL 2-D : ENLARGED LEFT ATRIAL CAVITY--MILDLY HYPOKINETIC LEFT VENTRICLE--NO EFFUSION, NO THROMBUS, NORMAL LEFT VENTRICLE SIZE M-MODE: MV: NORMAL AV: NORMAL TV: NORMAL PV: CHAMBER SIZE: ENLARGED LEFT ATRIAL CAVITY WALL MOTION: MILDLY HYPOKINETIC LEFT VENTRICLE PERICARDIUM: NORMAL INTERPRETATION: 1. BORDERLINE LEFT VENTRICULAR HYPERTROPHY 2. MILDLY HYPOKINETIC LEFT VENTRICLE WITH EJECTION FRACTION 50% 3. NORMAL VALVES 4. ENLARGED LEFT ATRIAL CAVITY MTDD
--- NOTE | 2016-12-07 14:53 | DS ---
DATE OF SERVICE: 12/01/16 FINAL DIAGNOSIS: 1. DEHYDRATION 2. WEAKNESS 3. UTI (GRAM POSITIVE COCCI) 4. COPD 5. DYSLIPIDEMIA 6. DEMENTIA 7. ALZHEIMER'S DISEASE 8. CAD 9. CHF 10. VENOUS INSUFFICIENCY, CHRONIC 11. RHEUMATOID ARTHRITIS 12. DYSPHAGIA, OROPHARYNGEAL PHASE 13. URINARY RETENTION 14. AUDITORY HALLUCINATIONS 15. HISTORY OF TB 16. HYPOTHYROIDISM 17. PARKINSON'S DISEASE 18. ESSENTIAL PRIMARY HYPERTENSION 19. ATRIAL FIBRILLATION 20. HISTORY OF DVT 21. GERD 22. OSTEOPOROSIS 23. RIGHT MASTECTOMY DISCHARGE INSTRUCTIONS: Will discharge the patient to [facility]. Dr. Malagon will follow with the patient at the correction. MEDICATIONS AT DISCHARGE: Aspirin 81 mg p.o. daily with meal zach Bisacodyl 10 mg RC daily p.r.n. Carbidopa/Levodopa one tab p.o. t.i.d. zach Cholecalciferol (Vitamin D3) (Vitamin D) 50,000 units p.o. weekly Docusate Sodium 100 mg p.o. daily Donepezil (Aricept) 5 mg p.o. bedtime zach Levothyroxine (Synthroid) 50 mcg p.o. q.d a.c. zach Megestrol (Megace) 800 mg p.o. daily zach Metoprolol (Lopressor) 50 mg p.o. b.i.d. zach Mirtazapine (Remeron) 15 mg p.o. bedtime Ondansetron (Zofran) 4 mg p.o. q.6h p.r.n. Polyethylene Glycol (Miralax) 17 mg p.o. b.i.d. zach Potassium Chloride (Micro-K cap) 10 mEq p.o. daily zach Risperidone (Risperdal) 0.5 mg p.o. bedtime ZACH Rivaroxaban (Xarelto) 20 mg p.o. daily ZACH Simvastatin (Zocor) 40 mg p.o. daily ZACH NEW PRESCRIPTIONS: Keflex 500 mg p.o. t.i.d. times 7 days DO NOT RESUME PREDNISONE LABS: CBC with differential and CMP in one week then: Routine labs: CBC monthly, CMP, TSH and free T4, lipid panel q.6months, UA with C/S p.r.n. ACTIVITY: May participate in correction activity program as tolerated; PT/OT/Speech please evaluate and treat if indicated. Keep feet/legs elevated as frequently as possible. DIET INSTRUCTIONS: Regular texture, regular consistency Mighty shake t.i.d with meals. No chocolate On Site Services Specialist please consult for optimal nutritional needs OTHER: V/S daily with oximetry measurements q.shift Oxygen every evening and Sundays Skin breakdown prevention measures SMOKING: Nonsmoker HOSPITAL COURSE: This is an 81-year-old female who was brought to the emergency room from [facility]. She is a patient of Dr. Malagon at [place]. The correction reported that she had had decreased appetite, poor eating and decreased urine output for the past two days. She did have a low grade fever. She is relatively new to the area. Her daughter moved her here from [facility] approximately one and one-half to two months ago. Up until the past 6 months she had been up and about, ambulatory; however, due to gradually worsening dementia and leg weakness she is now only able to get around in a wheelchair and has increased confusion. She is alert and oriented to person; however, not place and time. On admission, kidney function was slightly elevated with creatinine 1.2. She was admitted, placed on IV fluids NS. A UA revealed that she had 3+ bacteria as well as leuks and blood in her urine. She has been given three doses of Rocephin 1 gm q.24hr. She has remained afebrile during her stay. Her labs after admission have been totally normal. Today, on day of discharge, white count 7.6, hemoglobin 13.3, hematocrit 39.8, platelets 258. Sodium 141, potassium 4.1, BUN 11, creatinine 0.85. Vital signs on day of discharge: Temperature 97.6, heart rate 73, respirations 16, BP 129/80, pulse ox 96. She was placed on routine telemetry orders while she was here and her telemetry showed atrial fibrillation for which is a chronic problem for her and she is currently on Xarelto 20 mg daily. She does have some behavioral disturbances associated with her dementia for which she is on multiple medications including Risperdal, Remeron, Aricept. The patient's eating improved over the course of the past couple of days. Her labs improved quickly with IV hydration. She has responded well to the Rocephin. She will be discharged back to [facility] with Keflex 500 mg t.i.d. for the next 7 days. She is to start that tomorrow as she will receive her last dose of Rocephin 1 gm this morning. She is to have a CBC and CMP in one week. She will have PT/OT as tolerated and as needed at the correction. We will discharge her in stable condition and Dr. Malagon will follow up with her in the correction. TIME SPENT: More than 60 minutes. MTDD
== END 2016-12-01 16:00 | DRG 690 ==
LOC: ED 12:03 → MEDSURG B 15:10
PROVIDERS: ADMIT Internal Medicine; ATTEND Internal Medicine
DX: N39.0 Urinary tract infection, site not specified (principal); F02.81 Dementia in other diseases classified elsewhere, unspecified severity, with behavioral disturbance; R44.0 Auditory hallucinations; E86.0 Dehydration; R33.9 Retention of urine, unspecified; I51.7 Cardiomegaly; R94.39 Abnormal result of other cardiovascular function study; G20 Parkinson's disease; E03.9 Hypothyroidism, unspecified; I48.91 Unspecified atrial fibrillation; M62.81 Muscle weakness (generalized); J44.9 Chronic obstructive pulmonary disease, unspecified; G30.9 Alzheimer's disease, unspecified; I25.10 Atherosclerotic heart disease of native coronary artery without angina pectoris; I50.9 Heart failure, unspecified; I87.2 Venous insufficiency (chronic) (peripheral); M06.9 Rheumatoid arthritis, unspecified; R13.12 Dysphagia, oropharyngeal phase; I10 Essential (primary) hypertension; K21.9 Gastro-esophageal reflux disease without esophagitis; M81.0 Age-related osteoporosis without current pathological fracture; N39.8 Other specified disorders of urinary system; Z86.11 Personal history of tuberculosis; B95.2 Enterococcus as the cause of diseases classified elsewhere; Z86.718 Personal history of other venous thrombosis and embolism; Z16.29 Resistance to other single specified antibiotic; Z79.01 Long term (current) use of anticoagulants; Z79.899 Other long term (current) drug therapy; Z90.11 Acquired absence of right breast and nipple; Z99.3 Dependence on wheelchair
CPT/HCPCS: 36415; 80053; 81001; 82550; 83605; 84145; 84484; 85025; 87040; 87081; 87086; 87186; 93005; 93010; 96365; 99284

== ENCOUNTER 2016-12-13 22:42 | Outpatient (CLI) ==
[2016-12-13 22:56] LABS: BILIRUBIN,URINE 1+ (NEGATIVE); KETONES,URINE Trace (NEGATIVE); LEUKOCYTE ESTERASE ,URINE 2+ (NEGATIVE); NITRITE,URINE Negative (NEGATIVE); PH,URINE 5.5 (5-9); PROTEIN,URINE Trace (NEGATIVE); URINE, BLOOD Trace-intact (NEGATIVE)
[2016-12-13 23:00] LABS: ADD URINE MICROSCOPIC YES; BACTERIA,URINE TRACE (NOT PRESENT)
== END 2016-12-13 22:43 | disposition home or self-care (01) ==
LOC: NONPT 22:42
PROVIDERS: ATTEND Family Medicine
DX: N39.0 Urinary tract infection, site not specified (principal); R41.82 Altered mental status, unspecified
CPT/HCPCS: 81001; 87086

== ENCOUNTER 2016-12-25 14:42 | Inpatient (IN) ==
--- NOTE | 2016-12-25 14:53 | ED.PDOC ---
General ED Provider: Dr. JAS COREAS Chief Complaint: Altered Mental Status Stated Complaint: Less responsive than usual today,noted this AM Time Seen by Physician: 14:49 Mode of Arrival: Ambulance Information Source: Assisted, EMT Exam Limitations: Altered mental status Nursing and Triage Documentation Reviewed and Agree: Yes Miscellaneous Complaint Exam - Complex/Multi-System Complaint/Exam Onset/Duration: this AM Symptoms Are: Still present Episodes Lasting: Hours Initial Severity: Moderate Current Severity: Moderate Associated Signs and Symptoms: Reports: Decreased responsiveness, Wheezing, Decreased oral intake Recent Echo/LV Function: No Respiratory Distress: None JVD Present: No Tachypnea Present: No Stridor Present: No Abdominal Findings: Present: Normal findings Meningeal Signs Positive: No Focal Weakness: Present: None Focal Sensory Loss: Present: None Gait: Unable Gag Reflex Present: Yes Babinski Sign: Negative Right, Negative Left Skin Findings: Present: Normal findings Joint Swelling Present: No In-Dwelling Device Present: No Differential Diagnosis: Aspiration, CVA, Sepsis, UTI, Other (pneumonia, COPD acute exacerbation) Quality Indicators For Pneumonia/CAP: SpO2 assessed, Vital signs, Mental status assessed Review of Systems - Review Of Systems Constitutional: Reports: No symptoms Eyes: Reports: Other (unable to respond to questions or commands) Ears, Nose, Mouth, Throat: Reports: No symptoms (unable to respond to questions or commands) Respiratory: Reports: Wheezing Cardiac: Reports: Other (unable to respond to questions or commands) GI: Reports: Other (unable to respond to questions or commands) : Reports: Other (unable to respond to questions or commands) Musculoskeletal: Reports: Other (unable to respond to questions or commands) Skin: Reports: No symptoms Neurological: Reports: No symptoms, Other (unable to respond to questions or commands) All Other Systems: Other (unable to respond to questions or commands) Past Medical History - Past Medical History Previously Healthy: Yes Endocrine: Reports: Hypothyroid Cardiovascular: Reports: Hypertension, A-Fib Respiratory: Reports: None Hematological: Reports: None Gastrointestinal: Reports: None Genitourinary: Reports: None Neuro/Psych: Reports: Dementia Musculoskeletal: Reports: None Cancer: Reports: None - Surgical History General Surgical History: Reports: None - Family History Family History: Reports: None - Social History Smoking Status: Former smoker Hx Substance Use: No Alcohol Screening: None Lives: In Assisted - Immunizations Tetanus Shot up to Date: Yes Influenza Vaccine within 12 Months: Yes Pneumococcal Vaccine up to Date: Yes Physical Exam - Physical Exam Appearance: Well-appearing, Well-nourished, Obese Ill-appearing: Mild Pain Distress: None ENT: Nose normal, Oropharynx normal, TMs Occluded (TMs espinoza and dull) Neck: Supple (no lymphadenopathy) Respiratory: Airway patent, Breath sounds equal, Breath sounds diminished (in bilateral bases), Respirations nonlabored, Wheezes (exp wheezes in AF) Cardiovascular: RRR, Pulses normal, No rub, No murmur GI/: Soft, Nontender, No masses, Bowel sounds normal, No Organomegaly Musculoskeletal: Normal strength (unable to respond commands), ROM intact, No edema, No calf tenderness Skin: Warm, Dry, Normal color Neurological: Unresponsive (unable to respond commands) Psychiatric: Affect appropriate (unable to respond commands) Interpretation - Radiology Interpretation Radiology Interpretation By: Radiologist Radiology Results: Positive Exam Interpreted: Portable CXR Xray Comments: Bilateral pleural effusions with adjacent consolidation - EKG Interpretation Time of EKG #1: 15:35 Rate: Tachy (HR 124 BPM) Rhythm: Other (Atrial fib with RVR) Ectopy: None [place]: Right ST Segment: Other (ST & T abnormalities: consider anterior ischemia or dig effect) Interpretation: Incomplete RBBB, pulmonary disease pattern Physician Notification - Case Discussed Physician Notified: Dr Maravilla Time of Notification: 17:14 (requested CT abd/pelvis) Time of Notification: 17:56 (admit) Admit/Transition Orders Entered by ED Provider: Yes Critical Care Note - Critical Care Note Total Time (mins): 0 Course - Course Hematology/Chemistry: 12/25/16 15:25 12/25/16 15:25 Orders, Labs, Meds: Lab Review 12/25/16 12/25/16 12/25/16 15:25 15:25 15:25 WBC 13.04 H RBC 4.18 L Hgb 11.6 L Hct 34.0 L MCV 81.3 MCH 27.8 MCHC 34.1 RDW Coeff of Aziza 16.3 H Plt Count 255 Neutrophils % (Manual) 43.0 Band Neutrophils % 27.0 H Lymphocytes % (Manual) 23.0 Monocytes % (Manual) 7.0 Anisocytosis Not present Puncture Site O2 Saturation ABG pH ABG pCO2 ABG pO2 ABG HCO3 ABG Total CO2 ABG Base Excess Dick Test FiO2 % Sodium 138 Potassium 3.3 L Chloride 105 Carbon Dioxide 21 L Anion Gap 15.3 BUN 16 Creatinine 0.75 Estimated GFR (MDRD) 74.00 BUN/Creatinine Ratio 21.33 Glucose 99 Lactic Acid 12.3 Calcium 8.4 Total Bilirubin 0.57 AST 12 L ALT 10 L Alkaline Phosphatase 43 L Total Creatine Kinase 82 Troponin I 0.0430 Total Protein 5.6 L Albumin 1.8 L Globulin 3.8 Albumin/Globulin Ratio 0.47 Procalcitonin Urine Color Urine Clarity Urine pH Ur Specific [place] Urine Protein Urine Glucose (UA) Urine Ketones Urine Blood Urine Nitrite Urine Bilirubin Urine Urobilinogen Ur Leukocyte Esterase Urine Microscopic WBC Ur Squamous Epith Cells Ur Transition Epith Cell Urine Bacteria 12/25/16 12/25/16 12/25/16 15:25 15:52 16:11 WBC RBC Hgb Hct MCV MCH MCHC RDW Coeff of [place] Plt Count Neutrophils % (Manual) Band Neutrophils % Lymphocytes % (Manual) Monocytes % (Manual) Anisocytosis Puncture Site [place] O2 Saturation 90.0 L ABG pH 7.496 H ABG pCO2 28.8 L ABG pO2 53.0 L* ABG HCO3 22.3 ABG Total CO2 23 ABG Base Excess -1 Dick Test + FiO2 % 21.0 Sodium Potassium Chloride Carbon Dioxide Anion Gap BUN Creatinine Estimated GFR (MDRD) BUN/Creatinine Ratio Glucose Lactic Acid Calcium Total Bilirubin AST ALT Alkaline Phosphatase Total Creatine Kinase Troponin I Total Protein Albumin Globulin Albumin/Globulin Ratio Procalcitonin 9.25 Urine Color Yellow Urine Clarity Turbid Urine pH 5.5 Ur Specific [place] >=1.030 Urine Protein Trace Urine Glucose (UA) Negative Urine Ketones Negative Urine Blood 2+ Urine Nitrite Negative Urine Bilirubin 1+ Urine Urobilinogen 0.2 Ur Leukocyte Esterase Trace Urine Microscopic WBC Tntc Ur Squamous Epith Cells 0-2 Ur Transition Epith Cell 0-2 Urine Bacteria 2+ Orders Category Date Time Status ABG DRAW REQUEST Stat CARDIO 12/25/16 16:11 Completed EKG-(ED ONLY) Stat CARDIO 12/25/16 15:08 Completed NEBULIZER TREATMENT Stat CARDIO 12/25/16 16:20 Completed ABG Stat LAB 12/25/16 16:11 Completed BLOOD CULTURE Stat LAB 12/25/16 15:35 Received CBC W/ AUTO DIFF Stat LAB 12/25/16 15:25 Completed CK [CREATINE KINASE] Stat LAB 12/25/16 15:25 Completed COMPREHENSIVE METABOLIC PANEL Stat LAB 12/25/16 15:25 Completed LACTIC ACID Stat LAB 12/25/16 15:25 Completed MANUAL DIFFERENTIAL Stat LAB 12/25/16 15:25 Completed PROCALCITONIN Stat LAB 12/25/16 15:25 Completed TROPONIN I Stat LAB 12/25/16 15:25 Completed URINALYSIS WITH MICROSCOPIC Stat LAB 12/25/16 15:52 Completed Ipratropium/Albuterol Neb [Duoneb] MEDS 12/25/16 16:20 Discontinued 1 vial NEB ONCE STA CHEST, 1V AP ONLY Stat RADS 12/25/16 15:[address] ABDOMEN/PELVIS WO CONTRAST Stat RADS 12/25/16 17:14 Completed Medications Discontinued Medications Generic Name Dose Route Start Last Admin Trade Name Freq PRN Reason Stop Dose Admin Albuterol/Ipratropium 1 vial 12/25/16 16:20 12/25/16 16:45 Duoneb NEB 12/25/16 16:21 1 vial ONCE STA Administration Vital Signs: Temp Pulse Resp BP Pulse Ox 12/25/16 14:51 98.7 F 125 H 26 H 91/47 L 92 L Departure - Departure Time of Disposition: 18:07 Disposition: ADMITTED INPATIENT Discharge Problem: Pneumonia Condition: Good Pt referred to PMD for follow-up: Yes (after discharge from hospital) Allergies/Adverse Reactions: Allergies No Known Allergies Allergy (Unverified 11/29/16 12:05) Home Medications: Ambulatory Orders Aspirin 81 mg PO DAILY 11/29/16 Bisacodyl [Dulcolax] 10 mg RC DAILY PRN 11/29/16 Carbidopa/Levodopa [Sinemet 25-250] 1 tab PO TID 11/29/16 Cholecalciferol (Vitamin D3) [Vitamin D] 50,000 unit PO WEEKLY 11/29/16 Docusate Sodium 100 mg PO DAILY 11/29/16 Donepezil HCl [Aricept] 5 mg PO BEDTIME 11/29/16 Levothyroxine Sodium [Synthroid] 50 mcg PO QDAC 11/29/16 Megestrol Acetate [Megace Es] 625 mg PO DAILY 11/29/16 Metoprolol Tartrate [Lopressor] 50 mg PO BID 11/29/16 Mirtazapine [Remeron] 15 mg PO BEDTIME 11/29/16 Ondansetron HCl [Zofran] 4 mg PO Q6H PRN 11/29/16 Polyethylene Glycol 3350 [Miralax] 17 gm PO BID 11/29/16 Potassium Chloride [Micro-K Cap] 10 meq PO DAILY 11/29/16 Risperidone [Risperdal] 0.5 mg PO BEDTIME 11/29/16 Rivaroxaban [Xarelto] 20 mg PO DAILY 11/29/16 Simvastatin 40 mg PO DAILY 11/29/16 Cephalexin [Keflex] 500 mg PO DAILY 12/25/16 Furosemide [Lasix Tab] 1 tab PO DAILY 12/25/16 Disposition Discussed With: Patient, Family
[2016-12-25 15:43] LABS: HEMOGLOBIN 11.6 g/dl (12.0-16.0); MEAN CORPUSCULAR HEMOGLOBIN 27.8 pg (27.0-31.0); MEAN CORPUSCULAR HGB CONC 34.1 (31.8-35.4); MEAN CORPUSCULAR VOLUME 81.3 fl (81.0-99.0); PLATELET COUNT 255 10^3/uL (140-440); RED BLOOD COUNT 4.18 10^6/ul (4.20-5.40); WHITE BLOOD COUNT 13.04 K/ul (4.6-10.2)
[2016-12-25 15:56] LABS: ANISOCYTOSIS NOT PRESENT (NOT PRESENT)
[2016-12-25 16:03] LABS: BILIRUBIN,URINE 1+ (NEGATIVE); KETONES,URINE Negative (NEGATIVE); LEUKOCYTE ESTERASE ,URINE Trace (NEGATIVE); NITRITE,URINE Negative (NEGATIVE); PH,URINE 5.5 (5-9); PROTEIN,URINE Trace (NEGATIVE); URINE, BLOOD 2+ (NEGATIVE)
[2016-12-25 16:04] LABS: ADD URINE MICROSCOPIC YES
[2016-12-25 16:05] LABS: BACTERIA,URINE 2+ (NOT PRESENT)
--- NOTE | 2016-12-25 16:08 | DI ---
EXAM: Single view chest. HISTORY: Wheezing. Congestion. COMPARISON: None. FINDINGS: A single portable AP view of the chest. The lung volumes are normal. There are bilater al pleural effusions with adjacent consolidation. The heart is enlarged. The pulmonary vasculature appears normal. Mitral valve calcifications are seen. There are no suspicious pulmonary nodules. T he pulmonary interstitium is normal. The aorta is tortuous and calcified. There is mild curvature spine to the left. IMPRESSION: 1. Bilateral pleural effusions with adjacent consolidation. This may be secondary to atelectasis or pneumonia. 2. Cardiomegaly. No definite evidence of pulmonary vascular congestion on the study.
[2016-12-25 16:09] LABS: ALBUMIN 1.8 g/dL (3.4-5.0); ALBUMIN/GLOBULIN RATIO 0.47; ANION GAP 15.3; BILIRUBIN,TOTAL 0.57 mg/dL (0.00-1.20); BUN/CREATININE RATIO 21.33; CALCIUM 8.4 mg/dL (8.2-10.2); CREATININE 0.75 mg/dL (0.60-1.30); POTASSIUM 3.3 mmol/L (3.5-5.10); TOTAL PROTEIN 5.6 g/dL (5.8-8.1); TROPONIN I 0.043 ng/ml (0.0000-0.4000)
[2016-12-25] MEDS ORDERED: DUONEB NEB STA (16:20)
[2016-12-25 16:51] LABS: ABG PCO2 28.8 mmHg (35-45); ABG PH 7.496 (7.35-7.45)
[2016-12-25 16:52] LABS: ABG BASE EXCESS -1 (-2.0-2.0); ABG HCO3 22.3 (22.0-26.0); ABG TCO2 23 (22.0-28.0)
--- NOTE | 2016-12-25 17:49 | CT ---
Exam: CT abdomen and pelvis without IV contrast. Clinical indication: Altered mental status with urinary tract infection and elevated white blood cou nt. TECHNIQUE: Axial unenhanced CT images of the abdomen and pelvis were obtained followed by coronal an d sagittal reformats. There are no prior studies available for comparison. Findings: There are patchy bilateral areas of consolidation within the bilateral lower lobes greater on the lef t than the right consistent with pneumonia. There is a tiny left pleural effusion. There is no free intra-abdominal gas or fluid. The liver, gallbladder, adrenals, pancreas, spleen, and kidneys are unremarkable, given the limitatio ns of an unenhanced CT. There is extensive aortoiliac atherosclerotic vascular calcifications. There are no enlarged abdominal or pelvic lymph nodes, by size criteria. There has been a prior hysterectomy. There is colonic diverticulosis, without evidence of diverticulitis. The remainder the bowel is unre markable. There is an L1 vertebral body compression fracture which is age indeterminate. There is multilevel l umbar degenerative disc and facet disease. There is an anterolisthesis of L5 on S1 of approximately 0.5 cm secondary to bilateral pars interarticularis defects. Impression: 1. Bilateral lower lobe pneumonia. 2. Colonic diverticulosis without evidence of diverticulitis. 3. L1 vertebral body compression fracture age indeterminate. 4. Anterolisthesis of L5 on S1 secondary to bilateral L5 pars interarticularis defects. 5. Extensive multilevel lumbar degenerative disc and facet disease.
[2016-12-25] MEDS ORDERED: ALBUTEROL 0.083% NEB IH PRN (18:03)
[2016-12-25] MEDS ORDERED: ROCEPHIN 1 GM in SODIUM CHLORIDE 50 ML IV STA (18:20)
[2016-12-25] MEDS ORDERED: ROCEPHIN ONE (18:21)
[2016-12-25] MEDS: SODIUM CHLORIDE 1,000 ML IV SCH (19:29)
[2016-12-25] MEDS ORDERED: VANCOMYCIN 1 GM in SODIUM CHLORIDE 250 ML IV SCH (19:30)
[2016-12-25] MEDS: RISPERDAL ONE ×2 (20:47→20:53)
[2016-12-25] MEDS: REMERON PO SCH (20:53)
[2016-12-25] MEDS: MIRALAX PO SCH (20:53)
[2016-12-25] MEDS: LOPRESSOR PO SCH (20:53)
[2016-12-25] MEDS: SOLU-MEDROL 40 MG IVP SCH ×2 (20:53→20:56)
[2016-12-25] MEDS: ARICEPT ONE (20:53)
[2016-12-25] MEDS: MUCINEX PO SCH ×2 (20:53→20:54)
[2016-12-25] MEDS: ROCEPHIN 1 GM in SODIUM CHLORIDE 50 ML IV SCH (20:57)
[2016-12-25] MEDS ORDERED: NON-FORMULARY MEDICATION (Donepezil Hcl [Aricept] 5 MG) PO SCH ×11 (21:00)
[2016-12-25] MEDS ORDERED: SINEMET 25-250 PO SCH (21:00)
[2016-12-25] MEDS ORDERED: NON-FORMULARY MEDICATION (Risperidone [Risperdal] 0.5 MG) PO SCH (21:00)
[2016-12-25 22:56] VITALS: BMI 29.6
[2016-12-25] MEDS: DUONEB NEB SCH (23:45)
[2016-12-25] MEDS ORDERED: DUONEB NEB ONE (23:45)
[2016-12-26] MEDS: SOLU-MEDROL 40 MG IVP SCH ×3 (04:12→21:45)
[2016-12-26] MEDS: DUONEB NEB SCH ×4 (05:30→23:27)
[2016-12-26] MEDS: SYNTHROID PO SCH (05:35)
[2016-12-26] MEDS ORDERED: NON-FORMULARY MEDICATION (Rivaroxaban [Xarelto] 20 MG) PO SCH (09:00)
[2016-12-26] MEDS ORDERED: MEGESTROL ACETATE 625 MG PO SCH (09:00)
[2016-12-26] MEDS: ROCEPHIN 1 GM in SODIUM CHLORIDE 50 ML IV SCH (09:21)
[2016-12-26] MEDS: XARELTO PO SCH (09:21)
[2016-12-26] MEDS: ASPIRIN CHEWABLE PO SCH (09:21)
[2016-12-26] MEDS: MIRALAX PO SCH ×2 (09:21→21:46)
[2016-12-26] MEDS: LASIX TAB PO SCH (09:22)
[2016-12-26] MEDS: MUCINEX PO SCH ×2 (09:22→21:45)
[2016-12-26] MEDS: COLACE PO SCH (09:22)
[2016-12-26] MEDS: MICRO-K CAP PO SCH (09:22)
[2016-12-26] MEDS: LOPRESSOR PO SCH ×2 (09:22→21:45)
[2016-12-26] MEDS: ZOCOR PO SCH (09:22)
[2016-12-26] MEDS: MEGACE PO SCH (09:22)
[2016-12-26] MEDS: SINEMET 25-250 PO SCH ×3 (09:23→21:47)
[2016-12-26 10:11] LABS: HEMATOCRIT 33.9 % (37.0-47.0); HEMOGLOBIN 11.5 g/dl (12.0-16.0); MEAN CORPUSCULAR HEMOGLOBIN 27.6 pg (27.0-31.0); MEAN CORPUSCULAR HGB CONC 33.9 (31.8-35.4); MEAN CORPUSCULAR VOLUME 81.3 fl (81.0-99.0); PLATELET COUNT 219 10^3/uL (140-440); RED BLOOD COUNT 4.17 10^6/ul (4.20-5.40); WHITE BLOOD COUNT 11.07 K/ul (4.6-10.2)
[2016-12-26 10:31] LABS: ALBUMIN 1.7 g/dL (3.4-5.0); ALBUMIN/GLOBULIN RATIO 0.43; ANION GAP 16.3; BILIRUBIN,TOTAL 0.44 mg/dL (0.00-1.20); BUN/CREATININE RATIO 25.35; CALCIUM 8.5 mg/dL (8.2-10.2); CREATININE 0.71 mg/dL (0.60-1.30); POTASSIUM 3.3 mmol/L (3.5-5.10); TOTAL PROTEIN 5.7 g/dL (5.8-8.1)
[2016-12-26 10:35] LABS: ANISOCYTOSIS NOT PRESENT (NOT PRESENT)
[2016-12-26] MEDS: VANCOMYCIN 750 MG in SODIUM CHLORIDE 250 ML IV SCH ×2 (11:06→21:50)
[2016-12-26] MEDS ORDERED: MICRO-K CAP PO ONE (13:57)
--- NOTE | 2016-12-26 14:53 | HP ---
DATE OF SERVICE: 12/25/16 CHIEF COMPLAINT: Change in mental status, coughing and congeste times two days. HISTORY OF PRESENT ILLNESS: The patient has been coughing and congested for a couple of days for which the patient was treated with Keflex, steroids and breathing treatments. Overnight the patient has been more slow, sluggish, not active, not been drinking much fluid. The patient's family became worried and was transferred to ER for evaluation. White count was 13,000, heart rate 125. Saturation 92 on 2L. Bandemia with 27 bands. ABG showed pH 7.496, pc02 28.8, p02 53, Potassium 3.3. CT of abdomen and pelvis did show bilateral pneumonia. UA was positive for UTI. At that time, the patient was admitted to the hospital for community acquired pneumonia, UTI and dehydration. REVIEW OF SYSTEMS: CONSTITUTIONAL: Weakness, tiredness. No fever, no chills. HEENT: Normal. ENDOCRINE: No weight gain; no weight loss. CVS: No chest pain. No PND, no orthopnea. No shortness of breath. No PND, no orthopnea. RESPIRATORY: Cough and congestion. No hemoptysis. GI: Decreased appetite. Decreased hydration. No nausea, no vomiting. No abdominal pain. No melena. : No hematuria. No polyuria. MUSCULOSKELETAL: No joint swelling. PSYCHIATRIC: Not anxious. No depression. No suicidal thoughts. No homicidal thoughts. [employer] ARCHITECT: Shaking of hands. SKIN: Intact, no open lesions. PAST MEDICAL HISTORY: 1. CAD 2. Dyslipidemia 3. Atrial fibrillation on Xarelto 4. History of DVT 5. History of TIA 6. Alzheimer's dementia 7. Parkinsonism 8. COPD, oxygen dependent 9. Asthmatic COPD 10. Diverticulosis 11. History of breast cancer, status post mastectomy 12. 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 Rheumatoid arthritis PAST SURGICAL HISTORY: 1. Mastectomy 2. Hysterectomy PERSONAL HISTORY: The patient does not smoke. No alcohol use. Completely dependent on ADLs. FAMILY HISTORY: Significant for heart problem. MEDICATIONS: (HOME) 1. Xarelto 2. Vitamin D3 3. Risperdal 4. Remeron 5. Potassium 6. Miralax 7. Megace 8. Lopressor 9. Ducolax 10. Docusate 11. Aspirin 12. Donepezil 13. Zofran 14. Sinemet 15. Synthroid 16. Lasix 17. Keflex ALLERGIES: NKDA PHYSICAL EXAMINATION: V/S: BP 91/47, respiratory rate 26, heart rate 125, irregular. Saturation 92% on 2L, temperature 98.7. HEENT: Atraumatic, normocephalic. No scleral icterus. Pallor positive. Mucosa dry. Dehydrated. NECK: Supple. No JVD, no bruit. No lymphadenopathy. No thyromegaly. HEART: S1, S2 normal. No murmur. No cyanosis or clubbing. No ascites. LUNGS: Decreased basilar crackles. Expiratory wheeze present. ABDOMEN: Soft, nontender. Bowel sounds are active. No CVA tenderness. No rigidity or guarding. EXTREMITIES: No cyanosis, clubbing or pedal edema. Shakes in the upper extremity at present. MUSCULOSKELETAL: Normal joints, no swelling. NEUROLOGIC: The patient is awake, alert, oriented times three. SKIN: Intact; no open lesions. LYMPHATIC: No lymph nodes palpable. LABS: Sodium 138, potassium 3.3, chloride 105, bicarb 21, BUN 16, creatinine 0.75, glucose 99. White count 13.04, hemoglobin 11.6, hematocrit 34.0, platelet count 255. ASSESSMENT: 1. BILATERAL LOWER LOBE [facility] ACQUIRED PNEUMONIA 2. UTI 3. DEHYDRATION 4. HISTORY OF CAD 5. ATRIAL FIBRILLATION 6. HISTORY OF DVT 7. HYPERTENSION 8. DYSLIPIDEMIA 9. COPD OXYGEN DEPENDENT 10. PARKINSONISM 11. ALZHEIMER'S DEMENTIA 12. OSTEOARTHRITIS 13. DJD SPINE PLAN: 1. Admit the patient to regular floor 2. CBC, CMP today and daily 3. Cardiac enzymes and troponin 4. Rocephin and Vancomycin 1 gm daily 5. Duonebs 6. Solu-Medrol 7. Mucinex 8. IV fluids 40 mL/hr TIME SPENT: MORE THAN 70 minutes MTDD
[2016-12-26] MEDS: ARICEPT PO SCH (21:45)
[2016-12-26] MEDS: REMERON PO SCH (21:46)
[2016-12-26] MEDS: RISPERDAL PO SCH (21:46)
[2016-12-27] MEDS: SODIUM CHLORIDE 1,000 ML IV SCH (04:52)
[2016-12-27] MEDS: DUONEB NEB SCH ×4 (05:27→23:34)
[2016-12-27] MEDS: SYNTHROID PO SCH (06:18)
[2016-12-27] MEDS: LASIX TAB PO SCH (06:18)
[2016-12-27] MEDS: SOLU-MEDROL 40 MG IVP SCH ×3 (06:18→20:09)
[2016-12-27] MEDS ORDERED: MICRO-K CAP PO ONE (08:00)
[2016-12-27] MEDS: ROCEPHIN 1 GM in SODIUM CHLORIDE 50 ML IV SCH (09:07)
[2016-12-27] MEDS: MEGACE PO SCH (09:08)
[2016-12-27] MEDS: COLACE PO SCH (09:08)
[2016-12-27] MEDS: ZOCOR PO SCH (09:09)
[2016-12-27] MEDS: XARELTO PO SCH (09:09)
[2016-12-27] MEDS: ASPIRIN CHEWABLE PO SCH (09:09)
[2016-12-27] MEDS: LOPRESSOR PO SCH ×2 (09:09→20:09)
[2016-12-27] MEDS: MUCINEX PO SCH ×2 (09:09→20:09)
[2016-12-27] MEDS: MIRALAX PO SCH ×2 (09:10→20:08)
[2016-12-27] MEDS: MICRO-K CAP PO SCH (09:10)
[2016-12-27] MEDS: SINEMET 25-250 PO SCH ×3 (09:10→20:08)
[2016-12-27] MEDS: VANCOMYCIN 750 MG in SODIUM CHLORIDE 250 ML IV SCH ×2 (10:14→20:08)
--- NOTE | 2016-12-27 15:13 | PN ---
DATE OF SERVICE: 12/26/16 SUBJECTIVE: The patient was admitted with the bilateral community acquired pneumonia and change in mental status and UTI. As of today the patient is more awake and alert and trying eat but has a lot of shakes in the hands. REVIEW OF SYSTEMS: CONSTITUTIONAL: No fever, no chills. HEENT: Normal. ENDOCRINE: No weight gain, no weight loss. CVS: No angina symptoms. No CHF symptoms. No palpitations. No atypical chest pain for CAD. No shortness of breath. No PND, no orthopnea. RESPIRATORY: Cough and congestion, no hemoptysis. GI: No nausea, no vomiting. No abdominal pain. : No hematuria. No polyuria. MUSCULOSKELETAL:. No joint swelling. PSYCHIATRIC: Not anxious. No depression. No suicidal thoughts. No homicidal thoughts. SKIN: Intact. No rash. PHYSICAL EXAMINATION: V/S: Blood pressure 108/68, respiratory rate 18, heart rate 106, temperature 98 with saturation is 95 on 2 liters. HEENT: Normocephalic, atraumatic. Mucosa dry. Pallor positive. No icterus. NECK: Supple. No JVD, no carotid bruit. No lymphadenopathy. LUNGS: Decreased and basilar crackles and mild expiratory wheeze. No rales or rhonchi. HEART: S1, S2 normal. No S3. No murmur, gallop or regurgitation. ABDOMEN: Soft, nontender. Bowel sounds active. No rigidity. No rebound or guarding. No CVA tenderness. EXTREMITIES: No clubbing, cyanosis or pedal edema. MUSCULOSKELETAL: No joint swelling. NEUROLOGIC: Awake, alert, oriented times three. No focal deficit. LYMPHATIC: No lymph nodes palpable. SKIN: Intact. Dry. LABS: WBC 11.07, hgb 11.5, hct 33.9, plt count 219, sodium 139, potassium 3.3, chloride 106, bicarb 20, BUN 18, creatinine 0.71 ASSESSMENT: 1. Bilateral lower lobe Health Care facility acquired pneumonia 2. Change in Mental status 3. UTI 4. Dehydration 5. Hypokalemia 6. Hypertension 7. Atrial fibrillation 8. TIA 9. Alzheimer's dementia 10.Parkinson's disease 11.COPD PLAN: 1. Continue the Rocephin, Vancomycin, DUO NEBS, Solu-Medrol and IV fluids 2. Daily I&O's TIME SPENT: More than 35 minutes MTDD
[2016-12-27] MEDS: RISPERDAL PO SCH (20:08)
[2016-12-27] MEDS: REMERON PO SCH (20:09)
[2016-12-27] MEDS: ARICEPT PO SCH (20:09)
[2016-12-28] MEDS: DUONEB NEB SCH ×4 (05:03→23:13)
[2016-12-28] MEDS: SOLU-MEDROL 40 MG IVP SCH ×3 (05:45→21:48)
[2016-12-28] MEDS: SYNTHROID PO SCH (05:46)
[2016-12-28] MEDS: LASIX TAB PO SCH (05:46)
[2016-12-28] MEDS: MIRALAX PO SCH ×2 (08:06→21:49)
[2016-12-28] MEDS: MEGACE PO SCH (08:06)
[2016-12-28] MEDS: COLACE PO SCH (08:06)
[2016-12-28] MEDS: ASPIRIN CHEWABLE PO SCH (08:06)
[2016-12-28] MEDS: MICRO-K CAP PO SCH (08:06)
[2016-12-28] MEDS: MUCINEX PO SCH ×2 (08:07→21:50)
[2016-12-28] MEDS: ZOCOR PO SCH (08:07)
[2016-12-28] MEDS: XARELTO PO SCH (08:07)
[2016-12-28] MEDS: SINEMET 25-250 PO SCH ×3 (08:07→21:52)
[2016-12-28] MEDS: LOPRESSOR PO SCH ×2 (08:07→21:50)
[2016-12-28] MEDS ORDERED: XANAX PO PRN (08:17)
[2016-12-28] MEDS: ROCEPHIN 1 GM in SODIUM CHLORIDE 50 ML IV SCH (08:55)
[2016-12-28] MEDS: VANCOMYCIN 750 MG in SODIUM CHLORIDE 250 ML IV SCH (09:53)
[2016-12-28] MEDS: NORCO 5-325 PO PRN (11:16)
[2016-12-28] MEDS: SODIUM CHLORIDE 1,000 ML IV SCH (13:24)
[2016-12-28] MEDS ORDERED: DEXTROSE 5%-NS IV SOLUTION 1,000 ML IV SCH (14:00)
[2016-12-28 15:18] LABS: BASOPHILS # (AUTO) 0.1 K/uL (0-0.2); BASOPHILS % (AUTO) 0.4 % (0.0-3.0); HEMATOCRIT 35.5 % (37.0-47.0); HEMOGLOBIN 11.6 g/dl (12.0-16.0); IMMATURE GRANULOCYTE % (AUTO) 4.3 % (0.0-5.0); LYMPHOCYTES # (AUTO) 0.6 K/uL (0.60-3.4); LYMPHOCYTES % (AUTO) 4.3 (10.0-50.0); MEAN CORPUSCULAR HEMOGLOBIN 27.2 pg (27.0-31.0); MEAN CORPUSCULAR HGB CONC 32.7 (31.8-35.4); MEAN CORPUSCULAR VOLUME 83.3 fl (81.0-99.0); MONOCYTES # (AUTO) 0.4 K/uL (0.4-2.0); MONOCYTES % (AUTO) 2.7 (0-10); NEUTROPHILS % (AUTO) 88.3; PLATELET COUNT 232 10^3/uL (140-440); RED BLOOD COUNT 4.26 10^6/ul (4.20-5.40); WHITE BLOOD COUNT 13.59 K/ul (4.6-10.2)
[2016-12-28 15:37] LABS: ALBUMIN 2.1 g/dL (3.4-5.0); ALBUMIN/GLOBULIN RATIO 0.51; BILIRUBIN,TOTAL 0.28 mg/dL (0.00-1.20); BUN/CREATININE RATIO 28.39; CALCIUM 8.5 mg/dL (8.2-10.2); CREATININE 0.81 mg/dL (0.60-1.30); TOTAL PROTEIN 6.2 g/dL (5.8-8.1)
[2016-12-28] MEDS: ARICEPT PO SCH (21:49)
[2016-12-28] MEDS: RISPERDAL PO SCH (21:50)
[2016-12-28] MEDS: REMERON PO SCH (21:50)
[2016-12-29] MEDS: DUONEB NEB SCH ×4 (05:33→23:03)
[2016-12-29] MEDS: SOLU-MEDROL 40 MG IVP SCH ×3 (05:56→20:17)
[2016-12-29] MEDS: SYNTHROID PO SCH (05:56)
[2016-12-29] MEDS: LASIX TAB PO SCH (05:56)
[2016-12-29] MEDS ORDERED: HUMULIN R SUBCUT PRN (06:28)
[2016-12-29] MEDS ORDERED: HUMULIN R SUBCUT STA (06:28)
[2016-12-29] MEDS ORDERED: LASIX IVP STA (08:41)
[2016-12-29] MEDS: DEXTROSE 5%-NS IV SOLUTION 1,000 ML IV SCH ×2 (09:00→20:07)
[2016-12-29] MEDS ORDERED: ZOSYN 3.375 GM 3.375 GM in SODIUM CHLORIDE 100 ML IV SCH (09:00)
[2016-12-29 09:05] LABS: ALBUMIN 2.1 g/dL (3.4-5.0); ALBUMIN/GLOBULIN RATIO 0.54; ANION GAP 15.9; BILIRUBIN,TOTAL 0.32 mg/dL (0.00-1.20); BUN/CREATININE RATIO 28.39; CALCIUM 8.5 mg/dL (8.2-10.2); CREATININE 0.81 mg/dL (0.60-1.30); POTASSIUM 3.9 mmol/L (3.5-5.10)
[2016-12-29 09:06] LABS: HEMATOCRIT 33.9 % (37.0-47.0); HEMOGLOBIN 11.3 g/dl (12.0-16.0); MEAN CORPUSCULAR HEMOGLOBIN 27.8 pg (27.0-31.0); MEAN CORPUSCULAR HGB CONC 33.3 (31.8-35.4); MEAN CORPUSCULAR VOLUME 83.3 fl (81.0-99.0); PLATELET COUNT 219 10^3/uL (140-440); RED BLOOD COUNT 4.07 10^6/ul (4.20-5.40); WHITE BLOOD COUNT 11.85 K/ul (4.6-10.2)
[2016-12-29 09:19] LABS: ANISOCYTOSIS NOT PRESENT (NOT PRESENT)
[2016-12-29] MEDS: MEGACE PO SCH (09:45)
[2016-12-29] MEDS: ZOCOR PO SCH (09:46)
[2016-12-29] MEDS: MUCINEX PO SCH ×2 (09:46→21:32)
[2016-12-29] MEDS: MICRO-K CAP PO SCH (09:46)
[2016-12-29] MEDS: LOPRESSOR PO SCH ×2 (09:46→21:32)
[2016-12-29] MEDS: ASPIRIN CHEWABLE PO SCH (09:46)
[2016-12-29] MEDS: XARELTO PO SCH (09:47)
[2016-12-29] MEDS: COLACE PO SCH (09:47)
[2016-12-29] MEDS: MIRALAX PO SCH ×2 (09:47→21:30)
[2016-12-29] MEDS: VANCOMYCIN 750 MG in SODIUM CHLORIDE 250 ML IV SCH (10:57)
[2016-12-29] MEDS: SINEMET 25-250 PO SCH ×3 (10:58→21:32)
[2016-12-29] MEDS: NORCO 5-325 PO PRN (12:30)
--- NOTE | 2016-12-29 13:42 | PN ---
DATE OF SERVICE: 12/28/16 SUBJECTIVE: The patient complains that she is hurting more in the legs and she is more anxious today. Nurse is feeding the patient. REVIEW OF SYSTEMS: CONSTITUTIONAL: No fever, no chills. HEENT: Normal. ENDOCRINE: No weight gain, no weight loss. CVS: No angina symptoms. No CHF symptoms. No palpitations. No atypical chest pain for CAD. No shortness of breath. No PND, no orthopnea. RESPIRATORY: Cough and congestion, not able to get any phlegm today. no hemoptysis. GI: No nausea, no vomiting. No abdominal pain. : No hematuria. No polyuria. MUSCULOSKELETAL:. No joint swelling. PSYCHIATRIC: Not anxious. No depression. No suicidal thoughts. No homicidal thoughts. SKIN: Intact. No rash. PHYSICAL EXAMINATION: V/S: Blood pressure 132/88, respiratory rate 20, heart rate 100, temperature 97.6 with saturation is 95% on 2 liters. HEENT: Normocephalic, atraumatic. Mucosa dry. Pallor positive. No icterus. NECK: Supple. No JVD, no carotid bruit. No lymphadenopathy. LUNGS: Decreased and basilar crackles. No rales or rhonchi. HEART: S1, S2 normal. No S3. No murmur, gallop or regurgitation. ABDOMEN: Soft, nontender. Bowel sounds active. No rigidity. No rebound or guarding. No CVA tenderness. EXTREMITIES: No clubbing, cyanosis or pedal edema. MUSCULOSKELETAL: No joint swelling. NEUROLOGIC: Awake, alert, oriented times three. No focal deficit. LYMPHATIC: No lymph nodes palpable. SKIN: Intact. Dry LABS: Sodium 139, potassium 3.3, chloride 106. bicarb 20, BUN 18, creatinine 0.71, glucose 149, WBC 11.07, hgb 11.5, hct 33.9, plt count 219 ASSESSMENT: 1. Health Care Facility acquired pneumonia 2. UTI 3. Alzheimer's disease 4. Parkinson's disease 5. History of TIA 6. Atrial fibrillation on Rivaroxaban PLAN: 1. Continue the Rocephin and Vancomycin 2. Followup with the CBC and CMP 3. Continue the breathing treatments 4. Daily I&O's TIME SPENT: More than 35 minutes MTDD
--- NOTE | 2016-12-29 13:47 | PN ---
DATE OF SERVICE: 12/27/16 SUBJECTIVE: The patient was admitted with the health care facility acquired pneumonia and UTI. The patient does have tremors in the upper extremity. REVIEW OF SYSTEMS: CONSTITUTIONAL: No fever, no chills. Needs help with eating. HEENT: Normal. ENDOCRINE: No weight gain, no weight loss. CVS: No angina symptoms. No CHF symptoms. No palpitations. No atypical chest pain for CAD. No shortness of breath. No PND, no orthopnea. RESPIRATORY: Some cough getting some phlegm., no hemoptysis. GI: No nausea, no vomiting. No abdominal pain. : No hematuria. No polyuria. MUSCULOSKELETAL:. No joint swelling. PSYCHIATRIC: Not anxious. No depression. No suicidal thoughts. No homicidal thoughts. SKIN: Intact. No rash. PHYSICAL EXAMINATION: V/S: Blood pressure 115/82, respiratory rate 24, heart rate 98, temperature 96.6 , saturation 93 on the two liters. HEENT: Normocephalic, atraumatic. Mucosa dry. Pallor positive. No icterus. NECK: Supple. No JVD, no carotid bruit. No lymphadenopathy. LUNGS: Decreased and basilar crackles. No rales or rhonchi. HEART: S1, S2 normal. No S3. No murmur, gallop or regurgitation. ABDOMEN: Soft, nontender. Bowel sounds active. No rigidity. No rebound or guarding. No CVA tenderness. EXTREMITIES: No clubbing, cyanosis or pedal edema. Has tremors in the upper extremity. MUSCULOSKELETAL: No joint swelling. NEUROLOGIC: Awake, alert, oriented times three. No focal deficit. LYMPHATIC: No lymph nodes palpable. SKIN: Intact. LABS: WBC 11.07, hgb 11.5, hct 33.9, plt count 20=19, sodium 139, potassium 3.3, chloride 106, bicarb 20, BUN 18, creatinine 0.71, glucose 149. ASSESSMENT: 1. Health care facility acquired pneumonia 2. UTI 3. Alzheimer's Dementia 4. Parkinson's disease 5. History fo TIA 6. Atrial fibrillation on Eliquis 7. History of breast cancer PLAN: 1. Continue the DUO NEBS 2. Vancomycin 3. Rocephin 4. Daily I&O's Will follow the patient in daily rounds. TIME SPENT: More than 35 minutes MTDD
--- NOTE | 2016-12-29 14:35 | CT ---
EXAM: CT scan of the chest without contrast HISTORY: Cough, congestion. TECHNIQUE: Imaging of the chest was performed without intravenous contrast. 5 mm thin axial images and coronal and sagittal images were provided for interpretation. Comparison none. FINDINGS: The heart is normal size. No mediastinal masses are seen. Small bilateral pleural effusi ons are seen. Opacities are seen within the dependent lung bases bilaterally, left greater right. Ad ditional infiltrates are seen in the right upper lobe and left upper lobe of the lung. Ground-glass opacities are seen in the right lower lobe of the lung. No lytic or blastic lesions are seen within t he osseous structures. There is chronic appearing compression deformity of the L1 vertebral body. The re is dense calcification of the mitral valve. IMPRESSION: Bilateral pneumonia. Small bilateral pleural effusions.
[2016-12-29] MEDS: ZOSYN 3.375 GM 3.375 GM in SODIUM CHLORIDE 100 ML IV SCH ×2 (16:28→17:26)
[2016-12-29] MEDS: RISPERDAL PO SCH (21:30)
[2016-12-29] MEDS: REMERON PO SCH (21:31)
[2016-12-29] MEDS: ARICEPT PO SCH (21:31)
[2016-12-30] MEDS: ZOSYN 3.375 GM 3.375 GM in SODIUM CHLORIDE 100 ML IV SCH ×3 (00:07→12:33)
[2016-12-30] MEDS: DUONEB NEB SCH ×2 (05:04→11:24)
[2016-12-30] MEDS: SOLU-MEDROL 40 MG IVP SCH ×2 (05:32→12:33)
[2016-12-30] MEDS: SYNTHROID PO SCH (05:33)
[2016-12-30] MEDS: LASIX TAB PO SCH (05:33)
[2016-12-30 05:35] LABS: HEMATOCRIT 34.1 % (37.0-47.0); HEMOGLOBIN 11.3 g/dl (12.0-16.0); MEAN CORPUSCULAR HEMOGLOBIN 27.3 pg (27.0-31.0); MEAN CORPUSCULAR HGB CONC 33.1 (31.8-35.4); MEAN CORPUSCULAR VOLUME 82.4 fl (81.0-99.0); PLATELET COUNT 225 10^3/uL (140-440); RED BLOOD COUNT 4.14 10^6/ul (4.20-5.40); WHITE BLOOD COUNT 13.92 K/ul (4.6-10.2)
[2016-12-30 05:51] LABS: ALBUMIN 2.2 g/dL (3.4-5.0); ALBUMIN/GLOBULIN RATIO 0.65; ANION GAP 12.3; BILIRUBIN,TOTAL 0.46 mg/dL (0.00-1.20); BUN/CREATININE RATIO 25.64; CALCIUM 8.3 mg/dL (8.2-10.2); CREATININE 0.78 mg/dL (0.60-1.30); POTASSIUM 3.3 mmol/L (3.5-5.10); TOTAL PROTEIN 5.6 g/dL (5.8-8.1)
[2016-12-30 05:58] LABS: ANISOCYTOSIS NOT PRESENT (NOT PRESENT)
[2016-12-30 05:59] LABS: HYPOCHROMASIA 2+ (NOT PRESENT); MICROCYTOSIS 2+ (NOT PRESENT)
[2016-12-30] MEDS: MICRO-K CAP PO SCH (08:36)
[2016-12-30] MEDS: MEGACE PO SCH (08:36)
[2016-12-30] MEDS: MUCINEX PO SCH (08:36)
[2016-12-30] MEDS: XARELTO PO SCH (08:37)
[2016-12-30] MEDS: ASPIRIN CHEWABLE PO SCH (08:37)
[2016-12-30] MEDS: LOPRESSOR PO SCH (08:37)
[2016-12-30] MEDS: COLACE PO SCH (08:37)
[2016-12-30] MEDS: ZOCOR PO SCH (08:37)
[2016-12-30] MEDS: MIRALAX PO SCH (08:37)
[2016-12-30] MEDS: SINEMET 25-250 PO SCH (08:40)
[2016-12-30] MEDS: VANCOMYCIN 750 MG in SODIUM CHLORIDE 250 ML IV SCH (08:41)
[2016-12-30 08:54] VITALS: BP 140/70; TEMP 97.3
[2017-01-01] MEDS ORDERED: DRISDOL PO SCH (09:00)
[2017-01-01] MEDS ORDERED: NON-FORMULARY MEDICATION (Cholecalciferol (Vitamin D3) [Vitamin D3] 50,000 UNIT) PO SCH (09:00)
--- NOTE | 2017-01-02 09:36 | PN ---
DATE OF SERVICE: 12/29/16 SUBJECTIVE: The patient is more awake and alert but the patient has swelling all over the body. No respiratory distress. REVIEW OF SYSTEMS: CONSTITUTIONAL: No fever, no chills. HEENT: Normal. ENDOCRINE: No weight gain, no weight loss. CVS: No angina symptoms. No CHF symptoms. No palpitations. No atypical chest pain for CAD. No shortness of breath. No PND, no orthopnea. RESPIRATORY: Coughing and getting some phlegm, no hemoptysis. GI: No nausea, no vomiting. No abdominal pain. : No hematuria. No polyuria. MUSCULOSKELETAL:. No joint swelling. PSYCHIATRIC: Not anxious. No depression. No suicidal thoughts. No homicidal thoughts. SKIN: Intact. No rash. PHYSICAL EXAMINATION: V/S: Blood pressure 134/97, respiratory rate 18, heart rate 89, temperature 97 and saturation 93 on 2 liters. HEENT: Normocephalic, atraumatic. Mucosa dry. NECK: Supple. No JVD, no carotid bruit. No lymphadenopathy. LUNGS: Decreased and basilar crackles. No rales or rhonchi. HEART: S1, S2 normal. No S3. No murmur, gallop or regurgitation. ABDOMEN: Soft, nontender. Bowel sounds active. No rigidity. No rebound or guarding. No CVA tenderness. EXTREMITIES: No clubbing, cyanosis or pedal edema. MUSCULOSKELETAL: No joint swelling. NEUROLOGIC: Awake, alert, oriented times three. No focal deficit. LYMPHATIC: No lymph nodes palpable. SKIN: Intact. LABS: Sodium 142, potassium 3.9, chloride 109, bicarb 20, BUN 23, creatinine 0.81, WBC 11.85, hgb 11.3, hct 33.9, plt count 219. ASSESSMENT: 1. Health care facility acquired pneumonia 2. Dependant edema 3. Atrial fibrillation 4. Coronary artery disease 5. Hypotension 6. Dyslipidemia 7. Osteoarthritis 8. Alzheimer's Dementia 9. History of TIA PLAN: 1. Will change the antibiotic from Rocephin to the Zosyn 2. Continue the Vancomycin, DUO NEBS and Solu-Medrol 3. One dose of Lasix IV push TIME SPENT: More than 35 minutes MTDD
--- NOTE | 2017-01-02 09:40 | PN ---
DATE OF SERVICE: 12/30/16 SUBJECTIVE: The patient was admitted with health care facility acquired pneumonia. The patient is still having some coughing and congestion. More awake and alert today. Coughing some and singing songs. REVIEW OF SYSTEMS: CONSTITUTIONAL: No fever, no chills. HEENT: Normal. ENDOCRINE: No weight gain, no weight loss. CVS: No angina symptoms. No CHF symptoms. No palpitations. No atypical chest pain for CAD. No shortness of breath. No PND, no orthopnea. RESPIRATORY: Cough, no hemoptysis. GI: No nausea, no vomiting. No abdominal pain. : No hematuria. No polyuria. MUSCULOSKELETAL:. No joint swelling. PSYCHIATRIC: Not anxious. No depression. No suicidal thoughts. No homicidal thoughts. SKIN: Intact. No rash. PHYSICAL EXAMINATION: V/S: Blood pressure 120/80, respiratory rate 16, heart rate 68, temperature 98 and saturation 94% on the 2 liters. HEENT: Normocephalic, atraumatic. Mucosa dry. Pallor positive. No icterus. NECK: Supple. No JVD, no carotid bruit. No lymphadenopathy. LUNGS: Decreased and basilar crackles. No rales or rhonchi. HEART: S1, S2 normal. No S3. No murmur, gallop or regurgitation. ABDOMEN: Soft, nontender. Bowel sounds active. No rigidity. No rebound or guarding. No CVA tenderness. EXTREMITIES: No clubbing, cyanosis 1+ edema in lower extremity. MUSCULOSKELETAL: No joint swelling. NEUROLOGIC: Awake, alert, oriented times three. No focal deficit. LYMPHATIC: No lymph nodes palpable. SKIN: Intact. LABS: WBC 13.92, hgb 11.3, hct 34.1, plt count 225, sodium 143, potassium 3.3, chloride 108, Bicarb 26, BUN 20, creatinine 0.78 ASSESSMENT: 1. Health care facility acquired pneumonia, bilateral 2. Atrial fibrillation 3. History of TIA 4. Alzheimer's Dementia 5. Hypokalemia 6. Anemia PLAN: 1. Will place the patient in the transitional care unit for the continued IV antibiotics 2. Continue the Zosyn and Vancomycin, DUO NEBS. Solu-Medrol Will follow the patient in daily rounds. TIME SPENT: More than 35 minutes MTDD
== END 2016-12-30 13:40 | disposition swing bed (61) | DRG 194 ==
LOC: ED 14:42 → MEDSURG B 18:00 → UNDOADMIN 18:00 → MEDSURG A 18:00
PROVIDERS: ADMIT Emergency Medicine; ATTEND Emergency Medicine
DX: J18.9 Pneumonia, unspecified organism (principal); N39.0 Urinary tract infection, site not specified; F02.81 Dementia in other diseases classified elsewhere, unspecified severity, with behavioral disturbance; R41.82 Altered mental status, unspecified; I48.91 Unspecified atrial fibrillation; R40.2421 Glasgow coma scale score 9-12, in the field [EMT or ambulance]; R00.0 Tachycardia, unspecified; E03.9 Hypothyroidism, unspecified; G30.9 Alzheimer's disease, unspecified; G20 Parkinson's disease; J44.9 Chronic obstructive pulmonary disease, unspecified; M19.90 Unspecified osteoarthritis, unspecified site; M47.9 Spondylosis, unspecified; M06.9 Rheumatoid arthritis, unspecified; E78.5 Hyperlipidemia, unspecified; D64.9 Anemia, unspecified; E87.6 Hypokalemia; Y95 Nosocomial condition; R60.0 Localized edema; Z90.10 Acquired absence of unspecified breast and nipple; Z79.01 Long term (current) use of anticoagulants; Z79.899 Other long term (current) drug therapy; Z86.718 Personal history of other venous thrombosis and embolism; Z86.73 Personal history of transient ischemic attack (TIA), and cerebral infarction without residual deficits
CPT/HCPCS: 36415; 80053; 80202; 81001; 82550; 82803; 82962; 83605; 84145; 84484; 85007; 85025; 87040; 87070; 87081; 87205; 93005; 93010; 94640; 96365; 99223; 99233; 99284

== ENCOUNTER 2016-12-30 14:00 | Inpatient (IN) ==
[2016-12-30] MEDS ORDERED: XANAX PO PRN (14:20)
[2016-12-30] MEDS ORDERED: NORCO 5-325 PO PRN (14:22)
[2016-12-30 14:32] VITALS: BMI 29.8
[2016-12-30] MEDS ORDERED: SINEMET 25-250 PO SCH (15:00)
[2016-12-30] MEDS: SINEMET 25-250 PO SCH ×2 (16:03→20:30)
[2016-12-30] MEDS: DUONEB NEB SCH ×2 (17:00→22:52)
[2016-12-30] MEDS: ZOSYN 3.375 GM 3.375 GM in SODIUM CHLORIDE 100 ML IV SCH (18:10)
[2016-12-30] MEDS: HUMULIN R SUBCUT PRN ×2 (18:10→21:36)
[2016-12-30] MEDS: SOLU-MEDROL 40 MG IVP SCH (20:27)
[2016-12-30] MEDS: REMERON PO SCH (20:28)
[2016-12-30] MEDS: ARICEPT PO SCH (20:28)
[2016-12-30] MEDS: RISPERDAL PO SCH (20:29)
[2016-12-30] MEDS: MUCINEX PO SCH (20:29)
[2016-12-30] MEDS: MIRALAX PO SCH (20:30)
[2016-12-30] MEDS: LOPRESSOR PO SCH (20:31)
[2016-12-30] MEDS ORDERED: NON-FORMULARY MEDICATION (Donepezil Hcl [Aricept] 5 MG) PO SCH ×11 (21:00)
[2016-12-30] MEDS ORDERED: NON-FORMULARY MEDICATION (Risperidone [Risperdal] 0.5 MG) PO SCH (21:00)
[2016-12-31] MEDS: ZOSYN 3.375 GM 3.375 GM in SODIUM CHLORIDE 100 ML IV SCH ×4 (00:23→18:27)
[2016-12-31] MEDS: DEXTROSE 5%-NS IV SOLUTION 1,000 ML IV SCH (00:40)
[2016-12-31] MEDS: SOLU-MEDROL 40 MG IVP SCH ×3 (05:01→20:40)
[2016-12-31] MEDS: DUONEB NEB SCH ×4 (05:08→23:02)
[2016-12-31] MEDS: SYNTHROID PO SCH (06:07)
[2016-12-31] MEDS: LASIX TAB PO SCH (06:07)
[2016-12-31 07:23] LABS: HEMATOCRIT 32.2 % (37.0-47.0); HEMOGLOBIN 10.7 g/dl (12.0-16.0); MEAN CORPUSCULAR HEMOGLOBIN 27.7 pg (27.0-31.0); MEAN CORPUSCULAR HGB CONC 33.2 (31.8-35.4); MEAN CORPUSCULAR VOLUME 83.4 fl (81.0-99.0); PLATELET COUNT 232 10^3/uL (140-440); RED BLOOD COUNT 3.86 10^6/ul (4.20-5.40); WHITE BLOOD COUNT 15.86 K/ul (4.6-10.2)
[2016-12-31 07:43] LABS: ALBUMIN/GLOBULIN RATIO 0.54; ANION GAP 12.9; BILIRUBIN,TOTAL 0.58 mg/dL (0.00-1.20); BUN/CREATININE RATIO 24.65; CALCIUM 8.1 mg/dL (8.2-10.2); CREATININE 0.73 mg/dL (0.60-1.30); POTASSIUM 2.9 mmol/L (3.5-5.10); TOTAL PROTEIN 5.7 g/dL (5.8-8.1)
[2016-12-31 08:18] LABS: ANISOCYTOSIS 1+ (NOT PRESENT)
[2016-12-31] MEDS: ASPIRIN CHEWABLE PO SCH (08:51)
[2016-12-31] MEDS: MIRALAX PO SCH ×2 (08:51→20:39)
[2016-12-31] MEDS: MEGACE PO SCH (08:51)
[2016-12-31] MEDS: COLACE PO SCH (08:52)
[2016-12-31] MEDS: MUCINEX PO SCH ×2 (08:52→20:39)
[2016-12-31] MEDS: XARELTO PO SCH (08:52)
[2016-12-31] MEDS: LOPRESSOR PO SCH ×2 (08:53→16:41)
[2016-12-31] MEDS: ZOCOR PO SCH (08:53)
[2016-12-31] MEDS ORDERED: NON-FORMULARY MEDICATION (Rivaroxaban [Xarelto] 20 MG) PO SCH (09:00)
[2016-12-31] MEDS ORDERED: MICRO-K CAP PO SCH (09:00)
[2016-12-31] MEDS ORDERED: MEGESTROL ACETATE 625 MG PO SCH (09:00)
[2016-12-31] MEDS: SINEMET 25-250 PO SCH ×3 (09:04→20:54)
[2016-12-31] MEDS: VANCOMYCIN 750 MG in SODIUM CHLORIDE 250 ML IV SCH (09:04)
[2016-12-31] MEDS ORDERED: POTASSIUM CHLORIDE PREMIX RUN 40 MEQ in PREMIX 100 ML WATER 2 BAG IV STA (13:04)
[2016-12-31] MEDS ORDERED: K-DUR PO STA (13:05)
[2016-12-31] MEDS ORDERED: POTASSIUM CHLORIDE 20 MEQ VIAL-ADDITIVE ONLY IV ONE ×2 (13:23→13:25)
[2016-12-31] MEDS ORDERED: SODIUM CHLORIDE IV ONE (15:31)
[2016-12-31] MEDS ORDERED: POTASSIUM CHLORIDE IV ONE (15:31)
[2016-12-31] MEDS ORDERED: ADDITIVE ONLY IV ONE (15:31)
--- NOTE | 2016-12-31 15:51 | ED.PDOC ---
Procedures - IV/Art Line Insertion Location: lt foot Type of Line: Peripheral IV Invasive Line/IV Catheter Gauge: 22 Number of Attempts: 2 Blood Return Positive: Yes Invasive Line/IV Flushes Without Difficulty: Yes Conscious Sedation - Pre-op Assessment Weight: 185 lb Surgical History: RIGHT MASTECTOMY. HX DVT - NONSURGICAL - Medical History Past Medical History: Hypertension, Thyroid, High Lipids, CHF, A-FIb, COPD, GERD , Arthritis, CAD, Other Other History: TB, ALZHEIMERS, OSTEOPOROSIS, VENOUS INSUFF, DEMENTIA, PARKINSONS , LOW K+
[2016-12-31] MEDS: K-DUR PO SCH (17:58)
[2016-12-31] MEDS: HUMULIN R SUBCUT PRN ×2 (17:58→22:17)
[2016-12-31] MEDS: ARICEPT PO SCH (20:38)
[2016-12-31] MEDS: REMERON PO SCH (20:39)
[2016-12-31] MEDS: RISPERDAL PO SCH (20:39)
[2016-12-31 23:40] LABS: ALBUMIN/GLOBULIN RATIO 0.56; BILIRUBIN,TOTAL 0.52 mg/dL (0.00-1.20); BUN/CREATININE RATIO 23.18; CALCIUM 8.1 mg/dL (8.2-10.2); CREATININE 0.69 mg/dL (0.60-1.30); TOTAL PROTEIN 5.6 g/dL (5.8-8.1)
[2017-01-01] MEDS: ZOSYN 3.375 GM 3.375 GM in SODIUM CHLORIDE 100 ML IV SCH ×4 (00:21→17:50)
[2017-01-01] MEDS: DEXTROSE 5%-NS IV SOLUTION 1,000 ML IV SCH ×2 (00:34→14:12)
[2017-01-01] MEDS: SOLU-MEDROL 40 MG IVP SCH ×3 (04:48→21:03)
[2017-01-01] MEDS: DUONEB NEB SCH ×4 (05:06→22:42)
[2017-01-01] MEDS: SYNTHROID PO SCH (06:14)
[2017-01-01] MEDS: LASIX TAB PO SCH (06:14)
[2017-01-01] MEDS: VANCOMYCIN 750 MG in SODIUM CHLORIDE 250 ML IV SCH (09:04)
[2017-01-01] MEDS: HUMULIN R SUBCUT PRN ×2 (11:37→21:06)
[2017-01-01] MEDS: K-DUR PO SCH ×3 (11:40→17:50)
[2017-01-01] MEDS: ASPIRIN CHEWABLE PO SCH ×2 (11:40→14:18)
[2017-01-01] MEDS: DRISDOL PO SCH (11:41)
[2017-01-01] MEDS: COLACE PO SCH (11:41)
[2017-01-01] MEDS: MEGACE PO SCH (11:41)
[2017-01-01] MEDS: LOPRESSOR PO SCH ×3 (11:41→17:50)
[2017-01-01] MEDS: MIRALAX PO SCH ×3 (11:41→21:02)
[2017-01-01] MEDS: MUCINEX PO SCH ×3 (11:42→21:04)
[2017-01-01] MEDS: SINEMET 25-250 PO SCH ×4 (11:42→21:03)
[2017-01-01] MEDS: ZOCOR PO SCH ×2 (11:42→14:19)
[2017-01-01] MEDS: XARELTO PO SCH ×2 (11:42→14:18)
[2017-01-01] MEDS: REMERON PO SCH (21:03)
[2017-01-01] MEDS: ARICEPT PO SCH (21:04)
[2017-01-01] MEDS: RISPERDAL PO SCH (21:04)
[2017-01-02] MEDS: ZOSYN 3.375 GM 3.375 GM in SODIUM CHLORIDE 100 ML IV SCH ×4 (00:30→18:06)
[2017-01-02] MEDS: SOLU-MEDROL 40 MG IVP SCH ×2 (04:45→21:20)
[2017-01-02] MEDS: DUONEB NEB SCH ×4 (05:06→23:22)
[2017-01-02] MEDS: SYNTHROID PO SCH (05:57)
[2017-01-02] MEDS: LASIX TAB PO SCH (05:57)
[2017-01-02] MEDS: MIRALAX PO SCH ×2 (09:08→22:02)
[2017-01-02] MEDS: ZOCOR PO SCH (09:09)
[2017-01-02] MEDS: MEGACE PO SCH (09:09)
[2017-01-02] MEDS: VANCOMYCIN 750 MG in SODIUM CHLORIDE 250 ML IV SCH (09:09)
[2017-01-02] MEDS: K-DUR PO SCH ×3 (09:09→18:02)
[2017-01-02] MEDS: ASPIRIN CHEWABLE PO SCH (09:09)
[2017-01-02] MEDS: COLACE PO SCH (09:09)
[2017-01-02] MEDS: MUCINEX PO SCH ×2 (09:09→22:02)
[2017-01-02] MEDS: XARELTO PO SCH (09:09)
[2017-01-02] MEDS: LOPRESSOR PO SCH ×2 (09:09→18:02)
[2017-01-02] MEDS: SINEMET 25-250 PO SCH ×4 (09:25→22:02)
--- NOTE | 2017-01-02 09:47 | PN ---
DATE OF SERVICE: 12/31/16 SUBJECTIVE: The patient was admitted with the bilateral pneumonia. The patient is in the TCU care and getting IV antibiotics. Left side IV seems like infiltrated and the left upper extremity is swollen and seeping through it. Inform the nurses to get the new IV access. The patient is more awake and alert. Still coughing some and getting IV antibiotics and breathing treatments. REVIEW OF SYSTEMS: CONSTITUTIONAL: No fever, no chills. HEENT: Normal. ENDOCRINE: No weight gain, no weight loss. CVS: No angina symptoms. No CHF symptoms. No palpitations. No atypical chest pain for CAD. No shortness of breath. No PND, no orthopnea. RESPIRATORY: No cough, no hemoptysis. GI: No nausea, no vomiting. No abdominal pain. : No hematuria. No polyuria. MUSCULOSKELETAL:. No joint swelling. PSYCHIATRIC: Not anxious. No depression. No suicidal thoughts. No homicidal thoughts. SKIN: Intact. No rash. PHYSICAL EXAMINATION: V/S: Blood pressure 144/100, respiratory rate 20, heart rate 77, temperature 97.9 with saturation 96% on 2 liters. HEENT: Normocephalic, atraumatic. Mucosa dry. Pallor positive. No icterus. NECK: Supple. No JVD, no carotid bruit. No lymphadenopathy. LUNGS: Decreased and basilar crackles. No rales or rhonchi. HEART: S1, S2 normal. No S3. No murmur, gallop or regurgitation. ABDOMEN: Soft, nontender. Bowel sounds active. No rigidity. No rebound or guarding. No CVA tenderness. EXTREMITIES: No clubbing, cyanosis or pedal edema. Left upper extremity swollen. MUSCULOSKELETAL: No joint swelling. NEUROLOGIC: Awake, alert. No focal deficit. LYMPHATIC: No lymph nodes palpable. SKIN: Intact. Multiple ecchymotic areas LABS: WBC 15.86, hgb 10.7, hct 32.2, plt count 232, sodium 145, potassium 2.9, chloride 107, bicarb 28, BUN 18, creatinine 0.73 ASSESSMENT: 1. Bilateral health care facility acquired pneumonia 2. UTI 3. Severe Hypokalemia 4. History of Atrial fibrillation 5. TIA 6. Asthma 7. Diverticulosis 8. Breast cancer with mastectomy PLAN: 1. Continue the Vancomycin 2. Zosyn 3. DUO NEBS 4. Change the IV site 5. Daily I&O's TIME SPENT: More than 35 minutes MTDD
--- NOTE | 2017-01-02 10:02 | PN ---
DATE OF SERVICE: 01/01/17 SUBJECTIVE: The patient was admitted with the health care facility acquired pneumonia. The patient is not eating. The patient's son and [id number] in the room were worried and complaining about the some difficulty swallowing. I examined the throat with the Nurse Ashley. We did not see any problem there. REVIEW OF SYSTEMS: CONSTITUTIONAL: No fever, no chills. HEENT: Normal. ENDOCRINE: No weight gain, no weight loss. CVS: No angina symptoms. No CHF symptoms. No palpitations. No atypical chest pain for CAD. No shortness of breath. No PND, no orthopnea. RESPIRATORY: No cough, no hemoptysis. GI: No nausea, no vomiting. No abdominal pain. : No hematuria. No polyuria. MUSCULOSKELETAL:. No joint swelling. PSYCHIATRIC: Not anxious. No depression. No suicidal thoughts. No homicidal thoughts. SKIN: Intact. No rash. PHYSICAL EXAMINATION: V/S: Blood pressure 120/85, respiratory rate 20, heart rate 88, temperature 97.2 with saturation 98% on 2 liters. HEENT: Normocephalic, atraumatic. Mucosa dry. Pallor positive. No icterus. NECK: Supple. No JVD, no carotid bruit. No lymphadenopathy. LUNGS: Decreased and clear to auscultation. No rales or rhonchi. HEART: S1, S2 normal. No S3. No murmur, gallop or regurgitation. ABDOMEN: Soft, nontender. Bowel sounds active. No rigidity. No rebound or guarding. No CVA tenderness. EXTREMITIES: No clubbing, cyanosis. Upper extremity has some edema and multiple ecchymotic areas. MUSCULOSKELETAL: No joint swelling. NEUROLOGIC: Awake, alert. No focal deficit. LYMPHATIC: No lymph nodes palpable. SKIN: Intact. LABS: WBC 15.86, hgb 10.7, hct 32.2, plt count 232, sodium 142, potassium 4.0, chloride 108, bicarb 27, BUN 16, creatinine 0.69 ASSESSMENT: 1. Health care facility acquired pneumonia 2. Change in mental status, most likely from the Dementia 3. Atrial fibrillation on halfway anticoagulation 4. History of DVT 5. TIA 6. Diverticulosis 7. History of breast cancer PLAN: 1. CBC and CMP every other day 2. Encourage the patient to eat 3. Will get chest x-ray in the morning 4. Guarded prognosis been discussed with the patient's family in detail. TIME SPENT: More than 35 minutes MTDD
--- NOTE | 2017-01-02 13:51 | DI ---
EXAM: Chest one view, frontal view only. HISTORY: Pneumonia follow-up. COMPARISON: 12/29/2016. FINDINGS: Heart is mildly enlarged. Bibasilar consolidation noted, greater on the left along with s mall pleural effusion. No pneumothorax identified. Since the prior study, there has been no signifi cant interval change.. IMPRESSION: Stable bibasilar consolidation and pleural fluid, greater on the left
[2017-01-02] MEDS: HUMULIN R SUBCUT PRN (18:28)
[2017-01-02] MEDS ORDERED: RISPERDAL ONE (21:44)
[2017-01-02] MEDS: ARICEPT PO SCH (22:03)
[2017-01-02] MEDS: REMERON PO SCH (22:04)
[2017-01-02] MEDS: RISPERDAL PO SCH (22:04)
[2017-01-03] MEDS: ZOSYN 3.375 GM 3.375 GM in SODIUM CHLORIDE 100 ML IV SCH ×5 (00:04→23:39)
[2017-01-03] MEDS: DEXTROSE 5%-NS IV SOLUTION 1,000 ML IV SCH (03:25)
[2017-01-03] MEDS: DUONEB NEB SCH ×4 (05:20→23:11)
[2017-01-03] MEDS: LASIX TAB PO SCH (05:46)
[2017-01-03] MEDS: SYNTHROID PO SCH (05:47)
[2017-01-03] MEDS: MEGACE PO SCH (09:08)
[2017-01-03] MEDS: COLACE PO SCH (09:10)
[2017-01-03] MEDS: MUCINEX PO SCH ×2 (09:10→21:08)
[2017-01-03] MEDS: K-DUR PO SCH ×2 (09:10→17:15)
[2017-01-03] MEDS: VANCOMYCIN 750 MG in SODIUM CHLORIDE 250 ML IV SCH (09:10)
[2017-01-03] MEDS: SINEMET 25-250 PO SCH ×3 (09:10→21:07)
[2017-01-03] MEDS: LOPRESSOR PO SCH ×2 (09:11→17:15)
[2017-01-03] MEDS: ASPIRIN CHEWABLE PO SCH (09:11)
[2017-01-03] MEDS: XARELTO PO SCH (09:11)
[2017-01-03] MEDS: ZOCOR PO SCH (09:12)
[2017-01-03] MEDS: MIRALAX PO SCH ×2 (09:12→21:07)
[2017-01-03] MEDS: SOLU-MEDROL 40 MG IVP SCH ×2 (10:06→20:20)
--- NOTE | 2017-01-03 15:22 | PN ---
DATE OF SERVICE: 01/03/17 SUBJECTIVE: The patient was admitted with the bilateral pneumonia. The patient is slowly not feeling better. Pneumonia has been stable with the x-rays with no fever and not coughing but she is not eating food and complains about something is stuck in her throat but we examined and there was nothing stuck in her throat but doesn't have any problem with the liquids. REVIEW OF SYSTEMS: CONSTITUTIONAL: No fever, no chills. HEENT: Normal. ENDOCRINE: No weight gain, no weight loss. CVS: No angina symptoms. No CHF symptoms. No palpitations. No atypical chest pain for CAD. No shortness of breath. No PND, no orthopnea. RESPIRATORY: No cough, no hemoptysis. GI: No nausea, no vomiting. No abdominal pain. : No hematuria. No polyuria. MUSCULOSKELETAL:. No joint swelling. PSYCHIATRIC: Not anxious. No depression. No suicidal thoughts. No homicidal thoughts. SKIN: Intact. No rash. PHYSICAL EXAMINATION: V/S: Blood pressure 142/76, respiratory rate 20, heart rate 70, temperature 96.5 with saturation is 100 on 2 liters. HEENT: Normocephalic, atraumatic. Mucosa dry. Pallor positive. No icterus. NECK: Supple. No JVD, no carotid bruit. No lymphadenopathy. LUNGS: Decreased and some basilar crackles. No rales or rhonchi. HEART: S1, S2 normal. No S3. No murmur, gallop or regurgitation. ABDOMEN: Soft, nontender. Bowel sounds active. No rigidity. No rebound or guarding. No CVA tenderness. EXTREMITIES: No clubbing, cyanosis or pedal edema. Multiple ecchymotic areas in upper extremities from the IV line. Lower extremity no edema. MUSCULOSKELETAL: No joint swelling. NEUROLOGIC: Awake, alert, not oriented. No focal deficit. LYMPHATIC: No lymph nodes palpable. SKIN: Intact. LABS: WBC 15.86, hgb 10.7, hct 32.2, plt count 232, sodium 142, potassium 4.0, chloride 100.8, bicarb 27, BUN 16, creatinine 0.69 ASSESSMENT: 1. Change in mental status most likely from the dementia and medication effect 2. Bilateral pneumonia, stable 3. Anemia, stable 4. Atrial fibrillation, on blood thinners 5. History of TIA 6. Alzheimer's Dementia PLAN: 1. Continue the Lasix 20mg PO daily 2. DUO NEBS 3. Vancomycin 4. Zosyn 5. Daily I&O's TIME SPENT: More than 35 minutes MTDD
--- NOTE | 2017-01-03 20:20 | ED.PDOC ---
Procedures - IV/Art Line Insertion Location: Rt foot Type of Line: Peripheral IV Invasive Line/IV Catheter Gauge: 24 Number of Attempts: 1 Blood Return Positive: Yes Invasive Line/IV Flushes Without Difficulty: Yes Conscious Sedation - Pre-op Assessment Weight: 158 lb 4.67 oz Surgical History: RIGHT MASTECTOMY. HX DVT - NONSURGICAL - Medical History Past Medical History: Hypertension, Thyroid, High Lipids, CHF, A-FIb, COPD, GERD , Arthritis, CAD, Other Other History: TB, ALZHEIMERS, OSTEOPOROSIS, VENOUS INSUFF, DEMENTIA, PARKINSONS , LOW K+
[2017-01-03] MEDS: ARICEPT PO SCH (21:07)
[2017-01-03] MEDS: REMERON PO SCH (21:08)
[2017-01-03] MEDS: RISPERDAL PO SCH (21:08)
[2017-01-03] MEDS: HUMULIN R SUBCUT PRN (21:38)
[2017-01-04] MEDS: DUONEB NEB SCH ×4 (05:15→22:54)
[2017-01-04 05:34] LABS: BASOPHILS % (AUTO) 0.3 % (0.0-3.0); HEMATOCRIT 30.2 % (37.0-47.0); HEMOGLOBIN 10.1 g/dl (12.0-16.0); IMMATURE GRANULOCYTE % (AUTO) 3.7 % (0.0-5.0); LYMPHOCYTES # (AUTO) 0.8 K/uL (0.60-3.4); LYMPHOCYTES % (AUTO) 5.9 (10.0-50.0); MEAN CORPUSCULAR HEMOGLOBIN 27.3 pg (27.0-31.0); MEAN CORPUSCULAR HGB CONC 33.4 (31.8-35.4); MEAN CORPUSCULAR VOLUME 81.6 fl (81.0-99.0); MONOCYTES # (AUTO) 0.4 K/uL (0.4-2.0); MONOCYTES % (AUTO) 3.4 (0-10); NEUTROPHILS # (AUTO) 11.4 K/ul (2.0-6.9); NEUTROPHILS % (AUTO) 86.7; PLATELET COUNT 228 10^3/uL (140-440); WHITE BLOOD COUNT 13.12 K/ul (4.6-10.2)
[2017-01-04 06:07] LABS: ALBUMIN/GLOBULIN RATIO 0.65; ANION GAP 11.5; BILIRUBIN,TOTAL 0.6 mg/dL (0.00-1.20); BUN/CREATININE RATIO 29.85; CALCIUM 8.1 mg/dL (8.2-10.2); CREATININE 0.67 mg/dL (0.60-1.30); POTASSIUM 4.5 mmol/L (3.5-5.10); TOTAL PROTEIN 5.1 g/dL (5.8-8.1)
[2017-01-04] MEDS: LASIX TAB PO SCH (06:11)
[2017-01-04] MEDS: SYNTHROID PO SCH (06:11)
[2017-01-04] MEDS: ZOSYN 3.375 GM 3.375 GM in SODIUM CHLORIDE 100 ML IV SCH ×3 (06:11→17:33)
[2017-01-04] MEDS: DEXTROSE 5%-NS IV SOLUTION 1,000 ML IV SCH (06:20)
[2017-01-04] MEDS: ASPIRIN CHEWABLE PO SCH ×2 (08:31→10:03)
[2017-01-04] MEDS: LOPRESSOR PO SCH ×2 (08:31→17:35)
[2017-01-04] MEDS: MUCINEX PO SCH ×2 (08:32→21:16)
[2017-01-04] MEDS: ZOCOR PO SCH (08:32)
[2017-01-04] MEDS: XARELTO PO SCH (08:32)
[2017-01-04] MEDS: MIRALAX PO SCH ×3 (08:32→21:16)
[2017-01-04] MEDS: COLACE PO SCH (08:32)
[2017-01-04] MEDS: K-DUR PO SCH ×3 (08:32→17:36)
[2017-01-04] MEDS: PREDNISONE PO SCH ×2 (08:32→17:34)
[2017-01-04] MEDS: MEGACE PO SCH (08:32)
[2017-01-04] MEDS: SINEMET 25-250 PO SCH ×3 (10:02→21:17)
[2017-01-04] MEDS: ARICEPT PO SCH (21:16)
[2017-01-04] MEDS: REMERON PO SCH (21:16)
[2017-01-04] MEDS: RISPERDAL PO SCH (21:16)
[2017-01-05] MEDS: DEXTROSE 5%-NS IV SOLUTION 1,000 ML IV SCH ×2 (03:30→17:46)
[2017-01-05] MEDS: DUONEB NEB SCH ×4 (05:08→22:57)
[2017-01-05] MEDS: LASIX TAB PO SCH (05:38)
[2017-01-05] MEDS: SYNTHROID PO SCH (05:39)
[2017-01-05] MEDS: PREDNISONE PO SCH ×2 (08:35→17:37)
[2017-01-05] MEDS: XARELTO PO SCH (08:35)
[2017-01-05] MEDS: LOPRESSOR PO SCH ×2 (08:36→17:36)
[2017-01-05] MEDS: MUCINEX PO SCH ×2 (08:37→21:32)
[2017-01-05] MEDS: ASPIRIN CHEWABLE PO SCH (08:37)
[2017-01-05] MEDS: MEGACE PO SCH (08:38)
[2017-01-05] MEDS: COLACE PO SCH (08:38)
[2017-01-05] MEDS: K-DUR PO SCH ×2 (08:41→17:43)
[2017-01-05] MEDS: ZOCOR PO SCH (08:42)
[2017-01-05] MEDS: MIRALAX PO SCH ×2 (08:46→21:31)
[2017-01-05] MEDS: SINEMET 25-250 PO SCH ×3 (08:46→21:32)
--- NOTE | 2017-01-05 11:20 | PN ---
DATE OF SERVICE: 01/04/17 SUBJECTIVE: The patient is admitted with bilateral pneumonia. The patient's condition has slowly deteriorated, not wanting to eat anything, not awake. The patient has not been given any sedatives. Has not been eating for 2 to 3 days now. The patient's family is worried and we are worried. Chest x-ray shows improvement of pneumonia. No fever, no chills. Not coughing. REVIEW OF SYSTEMS: CONSTITUTIONAL: No fever, no chills. HEENT: Normal. ENDOCRINE: No weight gain, no weight loss. CVS: No angina symptoms. No CHF symptoms. No palpitations. No atypical chest pain for CAD. No shortness of breath. No PND, no orthopnea. RESPIRATORY: No cough, no hemoptysis. GI: No nausea, no vomiting. No abdominal pain. : No hematuria. No polyuria. MUSCULOSKELETAL:. No joint swelling. PSYCHIATRIC: Not anxious. No depression. No suicidal thoughts. No homicidal thoughts. SKIN: Intact. No rash. PHYSICAL EXAMINATION: V/S: BP 108/78, respiratory rate 24, heart rate 104, temperature 96.9, saturation 99 on 2L. HEENT: Normocephalic, atraumatic. Mucosa dry. Pallor positive. No icterus. NECK: Supple. No JVD, no carotid bruit. No lymphadenopathy. LUNGS: Decreased breath sounds, clear to auscultation. No rales or rhonchi. HEART: S1, S2 normal. No S3. No murmur, gallop or regurgitation. ABDOMEN: Soft, nontender. Bowel sounds active. No rigidity. No rebound or guarding. No CVA tenderness. EXTREMITIES: No clubbing, cyanosis or pedal edema. MUSCULOSKELETAL: No joint swelling. NEUROLOGIC: Awake, alert, responds to verbal stimuli and goes back to sleep. No focal deficit. LYMPHATIC: No lymph nodes palpable. SKIN: Intact. LABS: White count 13.12, hemoglobin 10.1, hematocrit 30.2, platelet count 228. Sodium 140, potassium 4.5, chloride 105, bicarb 28, BUN 20, creatinine 0.67, glucose 138. ASSESSMENT: 1. FAILURE TO THRIVE, NOT BEEN EATING 2. BILATERAL PNEUMONIA, WHICH IS GETTING BETTER 3. ATRIAL FIBRILLATION 4. STROKE 5. ALZHEIMER'S DEMENTIA WITH BEHAVIORAL CHANGES PLAN: 1. Will stop Zosyn. 2. Start Keflex 3. Stop Solu-Medrol IV push 4. Start Prednisone 10 mg twice a day 5. The patient and family are reluctant to give Megace in view of side effect of blood clots. Will be having a family meeting in view of patient's poor prognosis and to make some decisions that the patient can be treated differently. TIME SPENT: More than 35 minutes today. CHELSIED
[2017-01-05] MEDS: CALMOSEPTINE OINTMENT TP SCH ×2 (11:45→21:27)
[2017-01-05] MEDS: ARICEPT PO SCH (21:31)
[2017-01-05] MEDS: REMERON PO SCH (21:32)
[2017-01-05] MEDS: RISPERDAL PO SCH (21:32)
[2017-01-06] MEDS: DUONEB NEB SCH ×4 (04:55→23:40)
[2017-01-06] MEDS: SYNTHROID PO SCH (05:40)
[2017-01-06] MEDS: LASIX TAB PO SCH (05:40)
[2017-01-06] MEDS ORDERED: NON-FORMULARY MEDICATION (Cholecalciferol (Vitamin D3) [Vitamin D3] 50,000 UNIT) PO SCH (09:00)
[2017-01-06] MEDS: LOPRESSOR PO SCH ×2 (11:04→17:48)
[2017-01-06] MEDS: ASPIRIN CHEWABLE PO SCH (11:04)
[2017-01-06] MEDS: K-DUR PO SCH ×2 (11:04→17:48)
[2017-01-06] MEDS: COLACE PO SCH (11:05)
[2017-01-06] MEDS: MEGACE PO SCH (11:05)
[2017-01-06] MEDS: PREDNISONE PO SCH ×2 (11:05→17:48)
[2017-01-06] MEDS: MIRALAX PO SCH ×2 (11:06→20:56)
[2017-01-06] MEDS: MUCINEX PO SCH ×2 (11:07→20:56)
[2017-01-06] MEDS: SINEMET 25-250 PO SCH ×3 (11:07→20:55)
[2017-01-06] MEDS: XARELTO PO SCH (11:08)
[2017-01-06] MEDS: ZOCOR PO SCH (11:08)
[2017-01-06] MEDS: CALMOSEPTINE OINTMENT TP SCH ×2 (12:20→20:53)
[2017-01-06] MEDS: FLAGYL 500 MG/100 ML 500 MG in PREMIX 100 ML NS 1 BAG IV SCH ×3 (12:21→20:53)
[2017-01-06 13:38] LABS: ADD URINE MICROSCOPIC NO; BILIRUBIN,URINE Negative (NEGATIVE); KETONES,URINE Negative (NEGATIVE); LEUKOCYTE ESTERASE ,URINE Negative (NEGATIVE); NITRITE,URINE Negative (NEGATIVE); PROTEIN,URINE Negative (NEGATIVE); URINE, BLOOD Negative (NEGATIVE)
[2017-01-06] MEDS: RISPERDAL PO SCH (20:54)
[2017-01-06] MEDS: REMERON PO SCH (20:54)
[2017-01-06] MEDS: ARICEPT PO SCH (21:10)
[2017-01-07 04:49] LABS: BASOPHILS % (AUTO) 0.1 % (0.0-3.0); EOSINOPHILS # (AUTO) 0.1 K/ul (0.0-0.7); EOSINOPHILS % (AUTO) 0.4 % (0.0-7.0); HEMOGLOBIN 9.7 g/dl (12.0-16.0); IMMATURE GRANULOCYTE % (AUTO) 2.3 % (0.0-5.0); LYMPHOCYTES # (AUTO) 1.3 K/uL (0.60-3.4); LYMPHOCYTES % (AUTO) 9.2 (10.0-50.0); MEAN CORPUSCULAR HEMOGLOBIN 27.6 pg (27.0-31.0); MEAN CORPUSCULAR HGB CONC 33.4 (31.8-35.4); MEAN CORPUSCULAR VOLUME 82.4 fl (81.0-99.0); MONOCYTES # (AUTO) 0.9 K/uL (0.4-2.0); MONOCYTES % (AUTO) 6.4 (0-10); NEUTROPHILS # (AUTO) 11.8 K/ul (2.0-6.9); NEUTROPHILS % (AUTO) 81.6; PLATELET COUNT 217 10^3/uL (140-440); RED BLOOD COUNT 3.52 10^6/ul (4.20-5.40); WHITE BLOOD COUNT 14.42 K/ul (4.6-10.2)
[2017-01-07] MEDS: DUONEB NEB SCH ×4 (05:00→23:14)
[2017-01-07 05:23] LABS: ALBUMIN 1.9 g/dL (3.4-5.0); ALBUMIN/GLOBULIN RATIO 0.73; ANION GAP 8.1; BILIRUBIN,TOTAL 0.75 mg/dL (0.00-1.20); BUN/CREATININE RATIO 19.04; CALCIUM 7.9 mg/dL (8.2-10.2); CREATININE 0.63 mg/dL (0.60-1.30); POTASSIUM 3.1 mmol/L (3.5-5.10); TOTAL PROTEIN 4.5 g/dL (5.8-8.1)
[2017-01-07] MEDS: LASIX TAB PO SCH (05:39)
[2017-01-07] MEDS: SYNTHROID PO SCH (05:40)
[2017-01-07] MEDS: FLAGYL 500 MG/100 ML 500 MG in PREMIX 100 ML NS 1 BAG IV SCH ×3 (05:40→20:16)
[2017-01-07] MEDS ORDERED: K-DUR PO STA (07:14)
[2017-01-07] MEDS: LOPRESSOR PO SCH ×2 (07:30→16:33)
[2017-01-07] MEDS: PREDNISONE PO SCH ×2 (07:30→16:34)
[2017-01-07] MEDS: ASPIRIN CHEWABLE PO SCH (07:30)
[2017-01-07] MEDS: K-DUR PO SCH ×2 (07:30→16:33)
[2017-01-07] MEDS: COLACE PO SCH (09:41)
[2017-01-07] MEDS: CALMOSEPTINE OINTMENT TP SCH ×2 (09:41→20:15)
[2017-01-07] MEDS: MEGACE PO SCH (09:42)
[2017-01-07] MEDS: MIRALAX PO SCH ×2 (09:43→20:16)
[2017-01-07] MEDS: SINEMET 25-250 PO SCH ×3 (09:43→20:14)
[2017-01-07] MEDS: MUCINEX PO SCH ×2 (09:43→20:15)
[2017-01-07] MEDS: XARELTO PO SCH (09:44)
[2017-01-07] MEDS: ZOCOR PO SCH (09:44)
[2017-01-07] MEDS: ARICEPT PO SCH (20:14)
[2017-01-07] MEDS: RISPERDAL PO SCH (20:15)
[2017-01-07] MEDS: REMERON PO SCH (20:15)
[2017-01-08] MEDS: DEXTROSE 5%-NS IV SOLUTION 1,000 ML IV SCH (02:20)
[2017-01-08] MEDS: DUONEB NEB SCH ×4 (05:35→23:14)
[2017-01-08] MEDS: LASIX TAB PO SCH ×2 (05:58→06:27)
[2017-01-08] MEDS: SYNTHROID PO SCH ×2 (05:58→06:25)
[2017-01-08] MEDS: FLAGYL 500 MG/100 ML 500 MG in PREMIX 100 ML NS 1 BAG IV SCH ×3 (05:58→20:27)
[2017-01-08] MEDS: XARELTO PO SCH (08:42)
[2017-01-08] MEDS: CALMOSEPTINE OINTMENT TP SCH ×2 (08:42→20:28)
[2017-01-08] MEDS: MUCINEX PO SCH ×2 (08:43→20:30)
[2017-01-08] MEDS: LOPRESSOR PO SCH ×2 (08:49→18:53)
[2017-01-08] MEDS: DRISDOL PO SCH (08:50)
[2017-01-08] MEDS: ASPIRIN CHEWABLE PO SCH (08:50)
[2017-01-08] MEDS: K-DUR PO SCH ×2 (08:50→18:52)
[2017-01-08] MEDS: COLACE PO SCH (08:50)
[2017-01-08] MEDS: MEGACE PO SCH (08:51)
[2017-01-08] MEDS: SINEMET 25-250 PO SCH ×3 (08:51→20:29)
[2017-01-08] MEDS: ZOCOR PO SCH (08:51)
[2017-01-08] MEDS: MIRALAX PO SCH ×2 (08:51→20:31)
[2017-01-08] MEDS: PREDNISONE PO SCH ×2 (08:51→18:53)
[2017-01-08] MEDS: ARICEPT PO SCH (20:29)
[2017-01-08] MEDS: REMERON PO SCH (20:30)
[2017-01-08] MEDS: RISPERDAL PO SCH (20:30)
[2017-01-09] MEDS: FLAGYL 500 MG/100 ML 500 MG in PREMIX 100 ML NS 1 BAG IV SCH ×3 (04:57→22:23)
[2017-01-09] MEDS: DUONEB NEB SCH ×4 (05:25→23:27)
[2017-01-09] MEDS: SYNTHROID PO SCH (05:45)
[2017-01-09] MEDS: LASIX TAB PO SCH (05:45)
[2017-01-09] MEDS: MEGACE PO SCH (08:46)
[2017-01-09] MEDS: XARELTO PO SCH (09:05)
[2017-01-09] MEDS: LOPRESSOR PO SCH ×2 (09:05→17:32)
[2017-01-09] MEDS: K-DUR PO SCH ×2 (09:05→17:32)
[2017-01-09] MEDS: SINEMET 25-250 PO SCH ×3 (09:07→22:27)
[2017-01-09] MEDS: CALMOSEPTINE OINTMENT TP SCH ×2 (09:12→22:24)
[2017-01-09] MEDS ORDERED: K-DUR PO ONE (12:00)
[2017-01-09] MEDS: PREDNISONE PO SCH (12:12)
[2017-01-09] MEDS: ASPIRIN CHEWABLE PO SCH (12:12)
[2017-01-09] MEDS ORDERED: K-DUR PO STA (12:48)
--- NOTE | 2017-01-09 14:41 | PN ---
DATE OF SERVICE: 01/06/17 SUBJECTIVE: The patient been having diarrhea, stool was sent to check for the C-Diff and it came positive. Still not able to eat. REVIEW OF SYSTEMS: CONSTITUTIONAL: No fever, no chills. HEENT: Normal. ENDOCRINE: No weight gain, no weight loss. CVS: No angina symptoms. No CHF symptoms. No palpitations. No atypical chest pain for CAD. No shortness of breath. No PND, no orthopnea. RESPIRATORY: No cough, no hemoptysis. GI: No nausea, no vomiting. No abdominal pain. : No hematuria. No polyuria. MUSCULOSKELETAL:. No joint swelling. PSYCHIATRIC: Not anxious. No depression. No suicidal thoughts. No homicidal thoughts. SKIN: Intact. No rash. PHYSICAL EXAMINATION: V/S: blood pressure 132/72, respiratory rate 20, heart rate 70 and temperature 97.7. HEENT: Normocephalic, atraumatic. Mucosa dry. Pallor positive. No icterus. NECK: Supple. No JVD, no carotid bruit. No lymphadenopathy. LUNGS: Decreased and basilar crackles. No rales or rhonchi. HEART: S1, S2 normal. No S3. No murmur, gallop or regurgitation. ABDOMEN: Soft, nontender. Bowel sounds active. No rigidity. No rebound or guarding. No CVA tenderness. EXTREMITIES: No clubbing, cyanosis or pedal edema. MUSCULOSKELETAL: No joint swelling. NEUROLOGIC: Awake, alert, oriented. No focal deficit. LYMPHATIC: No lymph nodes palpable. SKIN: Intact. Dry. LABS: WBC 13.12, hgb 10.1, hct 30.2, plt count 228, sodium 140, potassium 4.5, chloride 105, bicarb 28, BUN 20, creatinine 0.67 and glucose 138. ASSESSMENT: 1. C-Diff diarrhea positive 2. Status post bilateral health care facility acquired pneumonia 3. Alzheimer's dementia with behavioral changes 4. Not been eating right now 5. Atrial fibrillation on usp anticoagulation 6. History of TIA 7. Hypertension 8. Dyslipidemia PLAN: 1. Will start the patient on Flagyl 500mg Q 8 hours 2. Continue the breathing treatments and IV fluids 3. Out of bed to chair 4. Fall precautions 5. Decubitus ulcer precautions Will follow the patient in daily rounds. TIME SPENT: More than 35 minutes MTDD
--- NOTE | 2017-01-09 14:52 | PN ---
DATE OF SERVICE: 01/07/17 SUBJECTIVE: The patient was admitted initially with pneumonia and now patient has C-Diff diarrhea. She responds to the verbal stimuli, says that she is trying to eat some otherwise no throat pain or no nausea and no abdominal pain. REVIEW OF SYSTEMS: CONSTITUTIONAL: No fever, no chills. HEENT: Normal. ENDOCRINE: No weight gain, no weight loss. CVS: No angina symptoms. No CHF symptoms. No palpitations. No atypical chest pain for CAD. No shortness of breath. No PND, no orthopnea. RESPIRATORY: No cough, no hemoptysis. GI: No nausea, no vomiting. No abdominal pain. : No hematuria. No polyuria. MUSCULOSKELETAL:. No joint swelling. PSYCHIATRIC: Not anxious. No depression. No suicidal thoughts. No homicidal thoughts. SKIN: Intact. No rash. PHYSICAL EXAMINATION: V/S: Blood pressure 132/72, respiratory rate 20, heart rate 70, temperature 97.7 with saturation 95 on 2 liters. HEENT: Normocephalic, atraumatic. Mucosa dry. Pallor positive. No icterus. NECK: Supple. No JVD, no carotid bruit. No lymphadenopathy. LUNGS: Decreased and basilar crackles. No rales or rhonchi. HEART: S1, S2 normal. No S3. No murmur, gallop or regurgitation. ABDOMEN: Soft, nontender. Bowel sounds active. No rigidity. No rebound or guarding. No CVA tenderness. EXTREMITIES: No clubbing, cyanosis or pedal edema. MUSCULOSKELETAL: No joint swelling. NEUROLOGIC: Awake, alert. No focal deficit. LYMPHATIC: No lymph nodes palpable. SKIN: Intact. LABS: Sodium 136, potassium 3.1, chloride 102, bicarb 29, BUN 12, creatinine 0.63, glucose 79, WBC 14.42, hgb 9.7, hct 29.0, plt count 217. ASSESSMENT: 1. Hypokalemia 2. C-Diff diarrhea 3. Status post bilateral pneumonia 4. Atrial fibrillation on correction anticoagulation 5. Alzheimer's Dementia with behavioral changes 6. History of TIA PLAN: 1. Replace the potassium with the 40meq potassium 2. Flagyl 500mg Q 8 hours 3. Daily I&O's 4. Will follow the patient in daily rounds. TIME SPENT: More than 35 minutes MTDD
[2017-01-09] MEDS: DEXTROSE 5%-NS IV SOLUTION 1,000 ML IV SCH ×2 (16:18→16:19)
[2017-01-09] MEDS ORDERED: MORPHINE 2 MG/ML SYRINGE IVP PRN (19:55)
[2017-01-09] MEDS: REMERON PO SCH (22:25)
[2017-01-09] MEDS: ARICEPT PO SCH (22:25)
[2017-01-09] MEDS: RISPERDAL PO SCH (22:26)
[2017-01-10] MEDS: DUONEB NEB SCH ×4 (05:20→21:28)
[2017-01-10] MEDS: LASIX TAB PO SCH (06:04)
[2017-01-10] MEDS: FLAGYL 500 MG/100 ML 500 MG in PREMIX 100 ML NS 1 BAG IV SCH ×3 (06:04→21:25)
[2017-01-10] MEDS: SYNTHROID PO SCH (06:04)
[2017-01-10] MEDS ORDERED: MORPHINE 2 MG/ML SYRINGE IVP PRN (08:53)
[2017-01-10] MEDS: ATIVAN IVP SCH ×3 (09:07→21:26)
--- NOTE | 2017-01-10 10:01 | PN ---
DATE OF SERVICE: 01/08/17 SUBJECTIVE: The patient's condition is gradually deteriorating and she is more lethargic and not wanting to eat or drink any, only listens to the family members. The family members have a lot of concern yesterday. They were explained the condition and worsening of prognosis and verbalized understanding. No diarrhea. On contact precaution for the C-Diff. REVIEW OF SYSTEMS: CONSTITUTIONAL: No fever, no chills. HEENT: Normal. ENDOCRINE: No weight gain, no weight loss. CVS: No angina symptoms. No CHF symptoms. No palpitations. No atypical chest pain for CAD. No shortness of breath. No PND, no orthopnea. RESPIRATORY: No cough, no hemoptysis. GI: No nausea, no vomiting. No abdominal pain. : No hematuria. No polyuria. MUSCULOSKELETAL:. No joint swelling. PSYCHIATRIC: Not anxious. No depression. No suicidal thoughts. No homicidal thoughts. SKIN: Intact. No rash. PHYSICAL EXAMINATION: V/S: Blood pressure 98/58, respiratory rate 18, heart rate 104, temperature 98.6. HEENT: Normocephalic, atraumatic. Mucosa dry. Pallor positive. No icterus. NECK: Supple. No JVD, no carotid bruit. No lymphadenopathy. LUNGS: Decreased and clear to auscultation. No rales or rhonchi. HEART: S1, S2 normal. No S3. No murmur, gallop or regurgitation. ABDOMEN: Soft, nontender. Bowel sounds active. No rigidity. No rebound or guarding. No CVA tenderness. EXTREMITIES: No clubbing, cyanosis or pedal edema. MUSCULOSKELETAL: No joint swelling. NEUROLOGIC: Awake, alert and goes back to sleep. No focal deficit. LYMPHATIC: No lymph nodes palpable. SKIN: Intact. LABS: WBC 14.42, hgb 9.7, hct 39.0, plt count 217, sodium 136, potassium 3.1, chloride 102, bicarb 29, BUN 12, creatinine 0.63 ASSESSMENT: 1. C-Diff diarrhea 2. Hyperkalemia 3. Status post bilateral pneumonia 4. UTI 5. Atrial fibrillation 6. History of TIA 7. Alzheimer's Dementia with behavioral changes. PLAN: 1. Continue the Flagyl IV Q 8 hours 2. Contact precautions 3. IV fluids and replace with the Potassium 4. Poor prognosis been discussed. TIME SPENT: More than 35 minutes MTDD
[2017-01-10] MEDS: K-DUR PO SCH ×2 (13:07→18:35)
[2017-01-10] MEDS: LOPRESSOR PO SCH ×3 (13:07→18:35)
[2017-01-10] MEDS: CALMOSEPTINE OINTMENT TP SCH ×2 (13:08→21:25)
[2017-01-10] MEDS: SINEMET 25-250 PO SCH ×3 (13:08→21:33)
[2017-01-10] MEDS: MEGACE PO SCH (13:08)
[2017-01-10] MEDS: XARELTO PO SCH ×2 (13:08→15:10)
--- NOTE | 2017-01-10 14:44 | PN ---
DATE OF SERVICE: 01/09/17 SUBJECTIVE: Admitted with pneumonia, now complicated with C. diff colitis and C. diff diarrhea. The patient is not eating or drinking any. REVIEW OF SYSTEMS: CONSTITUTIONAL: No fever, no chills. HEENT: Normal. ENDOCRINE: No weight gain, no weight loss. CVS: No angina symptoms. No CHF symptoms. No palpitations. No atypical chest pain for CAD. No shortness of breath. No PND, no orthopnea. RESPIRATORY: No cough, no hemoptysis. GI: Appetite not good. Diarrhea. No nausea, no vomiting. No abdominal pain. : No hematuria. No polyuria. MUSCULOSKELETAL:. No joint swelling. PSYCHIATRIC: Not anxious. No depression. No suicidal thoughts. No homicidal thoughts. SKIN: Intact. No rash. PHYSICAL EXAMINATION: V/S: BP 107/71, respiratory rate 16, heart rate 74, temperature 98.2. HEENT: Normocephalic, atraumatic. Mucosa dry, pallor positive. No icterus. NECK: Supple. No JVD, no carotid bruit. No lymphadenopathy. LUNGS: Decreased basilar crackles. No rales or rhonchi. HEART: S1, S2 normal. No S3. No murmur, gallop or regurgitation. ABDOMEN: Soft, nontender. Bowel sounds active. No rigidity. No rebound or guarding. No CVA tenderness. EXTREMITIES: No clubbing, cyanosis or pedal edema. MUSCULOSKELETAL: No joint swelling. NEUROLOGIC: Awake, alert, responds to verbal stimuli and sleeps. LYMPHATIC: No lymph nodes palpable. SKIN: Intact. Multiple ecchymotic areas in upper extremity. LABS: White count 14.42, hemoglobin 9.7, hematocrit 29.0, platelet count 217. Sodium 136, potassium 3.1, chloride 102, bicarb 29, BUN 12, creatinine 0.63, glucose 79. ASSESSMENT: 1. C. DIFF DIARRHEA 2. HYPOKALEMIA 3. CHANGE IN MENTAL STATUS FROM MULTIPLE PROBLEMS 4. ALZHEIMER'S DEMENTIA WITH BEHAVIORAL CHANGES 5. RECENT BILATERAL PNEUMONIA 6. RECENT UTI 7. ATRIAL FIB 8. HISTORY OF TIA PLAN: 1. Continue Flagyl 500 mg q.8hr 2. Breathing treatments 3. Morphine 2 mg for pain 4. Daily I & O TIME SPENT: More than 35 minutes MTDD
--- NOTE | 2017-01-10 14:52 | PN ---
DATE OF SERVICE: 01/10/17 SUBJECTIVE: The patient is admitted with pneumonia, now has C. diff diarrhea. She is still having diarrhea. The patient is not responding well, weak, tired and not eating at all. Morphine has been given for the pain. She is still having the restlessness. The patient's family is requesting her to be more calm and quiet and not to hurt. REVIEW OF SYSTEMS: CONSTITUTIONAL: Weakness, tiredness. No fever, no chills. HEENT: Normal. ENDOCRINE: No weight gain, no weight loss. CVS: No angina symptoms. No CHF symptoms. No palpitations. No atypical chest pain for CAD. No shortness of breath. No PND, no orthopnea. RESPIRATORY: No cough, no hemoptysis. GI: Poor appetite. Diarrhea. No nausea, no vomiting. No abdominal pain. : No hematuria. No polyuria. MUSCULOSKELETAL:. No joint swelling. PSYCHIATRIC: Not anxious. No depression. No suicidal thoughts. No homicidal thoughts. SKIN: Intact. No rash. PHYSICAL EXAMINATION: V/S: BP 105/84, respiratory rate 16, heart rate 74, temperature 96.3. Saturation 94 on 2L. HEENT: Normocephalic, atraumatic. Mucosa dry. Pallor positive. No icterus. NECK: Supple. No JVD, no carotid bruit. No lymphadenopathy. LUNGS: Decreased entry with basilar crackles. No rales or rhonchi. HEART: S1, S2 normal. No S3. No murmur, gallop or regurgitation. ABDOMEN: Soft, nontender. Bowel sounds active. No rigidity. No rebound or guarding. No CVA tenderness. EXTREMITIES: No clubbing, cyanosis or pedal edema. MUSCULOSKELETAL: No joint swelling. NEUROLOGIC: Awake, alert, not oriented times three. No focal deficit. LYMPHATIC: No lymph nodes palpable. SKIN: Intact. LABS: Sodium 136, potassium 3.1, chloride 102, bicarb 29, BUN 12, creatinine 0.63. White count 14.42, hemoglobin 9.7, hematocrit 29.0, platelet count 217. ASSESSMENT: 1. C. DIFF DIARRHEA 2. STATUS POST BILATERAL PNEUMONIA 3. HYPOKALEMIA 4. RECENT UTI 5. ALZHEIMER'S DEMENTIA WITH BEHAVIORAL CHANGES 6. TIA 7. ATRIAL FIBRILLATION PLAN: 1. Will add Ativan 1 mg q.4 to 6 hr 2. Increase Morphine to 2 mg every 4 to 6 hr 3. Duonebs 4. Continue the Flagyl 500 mg q.8hr TIME SPENT: More than 35 minutes MTDD
[2017-01-10] MEDS ORDERED: K-DUR PO STA (15:33)
[2017-01-10] MEDS: REMERON PO SCH (21:33)
[2017-01-10] MEDS: ARICEPT PO SCH (21:33)
[2017-01-10] MEDS: RISPERDAL PO SCH (21:33)
[2017-01-11] MEDS: DEXTROSE 5%-NS IV SOLUTION 1,000 ML IV SCH (01:41)
[2017-01-11] MEDS: ATIVAN IVP SCH ×2 (03:33→12:50)
[2017-01-11] MEDS: FLAGYL 500 MG/100 ML 500 MG in PREMIX 100 ML NS 1 BAG IV SCH ×2 (04:47→13:00)
[2017-01-11] MEDS: DUONEB NEB SCH ×2 (05:12→10:19)
[2017-01-11 05:20] LABS: BASOPHILS % (AUTO) 0.4 % (0.0-3.0); EOSINOPHILS # (AUTO) 0.1 K/ul (0.0-0.7); EOSINOPHILS % (AUTO) 1.5 % (0.0-7.0); HEMATOCRIT 29.6 % (37.0-47.0); HEMOGLOBIN 9.7 g/dl (12.0-16.0); IMMATURE GRANULOCYTE % (AUTO) 0.7 % (0.0-5.0); LYMPHOCYTES # (AUTO) 0.8 K/uL (0.60-3.4); MEAN CORPUSCULAR HEMOGLOBIN 27.6 pg (27.0-31.0); MEAN CORPUSCULAR HGB CONC 32.8 (31.8-35.4); MEAN CORPUSCULAR VOLUME 84.1 fl (81.0-99.0); MONOCYTES # (AUTO) 0.8 K/uL (0.4-2.0); NEUTROPHILS # (AUTO) 5.6 K/ul (2.0-6.9); NEUTROPHILS % (AUTO) 75.4; PLATELET COUNT 183 10^3/uL (140-440); RED BLOOD COUNT 3.52 10^6/ul (4.20-5.40); WHITE BLOOD COUNT 7.47 K/ul (4.6-10.2)
[2017-01-11 05:45] LABS: ALBUMIN 2.1 g/dL (3.4-5.0); ALBUMIN/GLOBULIN RATIO 0.75; ANION GAP 9.9; BILIRUBIN,TOTAL 1.02 mg/dL (0.00-1.20); BUN/CREATININE RATIO 12.3; CALCIUM 8.1 mg/dL (8.2-10.2); CREATININE 0.65 mg/dL (0.60-1.30); POTASSIUM 3.9 mmol/L (3.5-5.10); TOTAL PROTEIN 4.9 g/dL (5.8-8.1)
[2017-01-11 06:03] VITALS: BP 108/62; TEMP 98.2
[2017-01-11] MEDS: LASIX TAB PO SCH (06:15)
[2017-01-11] MEDS: SYNTHROID PO SCH (06:16)
[2017-01-11] MEDS: K-DUR PO SCH (10:27)
[2017-01-11] MEDS: LOPRESSOR PO SCH (10:28)
[2017-01-11] MEDS: MEGACE PO SCH (10:29)
[2017-01-11] MEDS: SINEMET 25-250 PO SCH (10:30)
[2017-01-11] MEDS: XARELTO PO SCH (10:30)
--- NOTE | 2017-01-11 12:18 | CM.DICTOOL ---
ADMISSION: 12/30/16 14:00 DISCHARGE: January 11, 2017 From [facility] DATE OF SERVICE: 01/11/17 FINAL DIAGNOSIS Failure to thrive C. Diff Diarrhea Status Post Bilateral Pneumonia Hypokalemia Hypothyroid Recent UTI Alzheimer's Dementia with Behavioral Changes TIA Atrial Fibrillation Parkinson's COPD Osteoarthritis DJD spine Rheumatoid Arthritis Dyslipidemia Anemia Breast Cancer, s/p right mastectomy LAST VITALS Temp Pulse Resp BP Pulse Ox 98.2 F 64 14 108/62 99 01/11/17 06:00 01/11/17 06:00 01/11/17 06:00 01/11/17 06:00 01/11/17 06:00 ACTIVE HOME MEDICATIONS Levothyroxine Sodium (Synthroid) 50 mcg PO QDAC [facility] Last Admin: 01/11/17 06:16 Dose: Not Given Lorazepam (Ativan) 1 mg IVP Q6H [facility] Last Admin: 01/11/17 03:33 Dose: 1 mg (new medication) Rivaroxaban (Xarelto) 20 mg PO DAILY [facility] Last Admin: 01/11/17 10:30 Dose: Not Given ALLERGIES No Known Allergies Allergy (Unverified 11/29/16 12:05) NEW PRESCRIPTIONS: Flagyl 500 mg oral TID for 9 days. Ativan 1 mg oral or SL every 6 hours for restlessness/anxiety Roxanol 0.1 ml (2 mg) every 4-6 hours for pain as needed SMOKING: Not Applicable DISEASE SPECIFIC EDUCATION: Not Applicable. Patient disoriented LAB REVIEW: 01/11/17 05:10 01/11/17 05:10 01/11/17 05:10: Sodium 140, Potassium 3.9, Chloride 106, Carbon Dioxide 28, Anion Gap 9.9, BUN 8, Creatinine 0.65, Estimated GFR (MDRD) 87.00, BUN/ Creatinine Ratio 12.30, Glucose 83, Calcium 8.1 L, Total Bilirubin 1.02, AST 23 , ALT 12, Alkaline Phosphatase 78, Total Protein 4.9 L, Albumin 2.1 L, Globulin 2.8, Albumin/Globulin Ratio 0.75 01/11/17 05:10: WBC 7.47, RBC 3.52 L, Hgb 9.7 L, Hct 29.6 L, MCV 84.1, MCH 27.6 , MCHC 32.8, RDW Coeff of Aziza 18.0 H, Plt Count 183, Immature Gran % (Auto) 0.7 , Neut % (Auto) 75.4, Lymph % (Auto) 11.0, Nolan % (Auto) 11.0 H, Eos % (Auto) 1.5, Baso % (Auto) 0.4, Immature Gran # (Auto) 0.1, Neut # 5.6, Lymph # 0.8, Nolan # 0.8, Eos # 0.1, Baso # 0.0 PLAN: Discharge to [facility] Diet: as desired Activity: turn every 2 hours, patient is non-ambulatory prison orders: Incontinent care prn Decubitus precautions Turn every 2 hours Mouth care every 4 hours Oxygen at 2 liters per cannula Calmoseptine Ointment topical BID to buttocks Vital Signs daily Contact Precautions due to C-diff Continue medications as listed on discharge summary Patient is DNR per family request Palliative care per family request Dr. Maravilla to see on halfway rounds this week. Ms. Myers has been alert to person only. She briefly opens her eyes today at the sound of her name. No verbal response is noted. She requires feeding and assistance with liquids by the nursing staff, but refuses all offers of food/ liquids. She will occasionally take oral medications. She emphatically states "no, no, no". She is incontinent of bladder and bowel. Last bowel movement is noted on the 15. She is non-ambulatory and requires turning by the nursing staff every 2 hours. The upper extremities are edematous with areas of ecchymosis noted. A skin tear is noted to the left forearm. No edema is noted to the lower extremities. Alcides Maravilla MD
[2017-01-11] MEDS: CALMOSEPTINE OINTMENT TP SCH (12:50)
--- NOTE | 2017-01-19 11:15 | PN ---
DATE OF SERVICE: 01/02/17 SUBJECTIVE: The patient is in the TCU care getting IV antibiotics for the bilateral health care facility acquired pneumonia. The patient is being less responsive lately and not been eating. Complaints about the throat pain, throat was examined and did not find any problem in the throat. Today morning the patient was seen with [facility]. Started singing the River song but she doesn't complain much today. REVIEW OF SYSTEMS: CONSTITUTIONAL: No fever, no chills. HEENT: Normal. ENDOCRINE: No weight gain, no weight loss. CVS: No angina symptoms. No CHF symptoms. No palpitations. No atypical chest pain for CAD. No shortness of breath. No PND, no orthopnea. RESPIRATORY: No cough, no hemoptysis. GI: No nausea, no vomiting. No abdominal pain. : No hematuria. No polyuria. MUSCULOSKELETAL:. No joint swelling. PSYCHIATRIC: Not anxious. No depression. No suicidal thoughts. No homicidal thoughts. SKIN: Intact. No rash. PHYSICAL EXAMINATION: V/S: Blood pressure 133/88, respiratory rate 16, heart rate 77, temperature 97.5 with saturation 100%. HEENT: Normocephalic, atraumatic. Mucosa dry. Pallor Positive. No icterus. NECK: Supple. No JVD, no carotid bruit. No lymphadenopathy. LUNGS: Clear to auscultation. No rales or rhonchi. HEART: S1, S2 normal. No S3. No murmur, gallop or regurgitation. ABDOMEN: Soft, nontender. Bowel sounds active. No rigidity. No rebound or guarding. No CVA tenderness. EXTREMITIES: No clubbing, cyanosis or pedal edema. Mild ecchymotic areas are present in upper extremities from the IV sites. MUSCULOSKELETAL: No joint swelling. NEUROLOGIC: Awake, alert, oriented times three. No focal deficit. LYMPHATIC: No lymph nodes palpable. SKIN: Intact. LABS: WBC 15.86, hgb 10.7, hct 32.2, plt count 232, Sodium 142, potassium 4.0, chloride 108, bibcarb 27, BUN 165, creatinine 0.69 and glucose 154. ASSESSMENT: 1. Bilateral pneumonia 2. UTI 3. Confusion, most likely from the dementia 4. Atrial fibrillation 5. History of DVT 6. Alzheimer's Dementia PLAN: 1. Will get a chest x-ray 2. Continue the breathing treatment 3. Decrease the Solu-Medrol to twice a day 4. Continue the Vancomycin 5. Daily I&O's Will follow the patient in daily rounds. TIME SPENT: More than 35 minutes MTDD
--- NOTE | 2017-02-07 07:40 | PN ---
DATE OF SERVICE: 01/05/17 SUBJECTIVE: The patient was admitted with bilateral pneumonia. The patient's condition is gradually declining. She is being not wanting to eat or drink any fluids. Made a lot efforts to ask patient to eat but she keeps refusing. Family is concerned and we did start an appetite stimulant Megace. Still no use so far. REVIEW OF SYSTEMS: CONSTITUTIONAL: No fever, no chills. HEENT: Normal. ENDOCRINE: No weight gain, no weight loss. CVS: No angina symptoms. No CHF symptoms. No palpitations. No atypical chest pain for CAD. No shortness of breath. No PND, no orthopnea. RESPIRATORY: No cough, no hemoptysis. GI: No nausea, no vomiting. No abdominal pain. : No hematuria. No polyuria. MUSCULOSKELETAL:. No joint swelling. PSYCHIATRIC: Not anxious. No depression. No suicidal thoughts. No homicidal thoughts. SKIN: Intact. No rash. PHYSICAL EXAMINATION: V/S: Blood pressure 120/64, respiratory rate 6, heart rate 88, temperature 98.0 with saturation 99 on 2 liters. HEENT: Normocephalic, atraumatic. Mucosa dry. Pallor positive. No icterus. NECK: Supple. No JVD, no carotid bruit. No lymphadenopathy. LUNGS: Decreased and Clear to auscultation. No rales or rhonchi. HEART: S1, S2 normal. No S3. No murmur, gallop or regurgitation. ABDOMEN: Soft, nontender. Bowel sounds active. No rigidity. No rebound or guarding. No CVA tenderness. EXTREMITIES: No clubbing, cyanosis or pedal edema. MUSCULOSKELETAL: No joint swelling. NEUROLOGIC: Awake, alert, oriented times three. No focal deficit. LYMPHATIC: No lymph nodes palpable. SKIN: Intact. LABS: WBC 13.12, hgb 10.5, hct 30.2, plt count 228, sodium 140, potassium 4.5, chloride 105, bicarb 28, BUN 20, creatinine 0.67 ASSESSMENT: 1. Not been eating 2. Alzheimer's dementia with behavioral changes 3. Bilateral pneumonia, getting better 4. Dehydration, improved 5. Atrial fibrillation 6. History of TIA PLAN: 1. Continue current medications 2. Breathing treatments 3. Soft diet 4. Megace 5. IV fluids at D5 30ml per hour 6. Xarelto TIME SPENT: More than 35 minutes. Had a family meeting with the patient's daughter and son and had a lengthy discussion with them. JOSSELYN
--- NOTE | 2017-02-14 15:48 | DS ---
DATE OF SERVICE: 01/11/17 FINAL DIAGNOSIS: 1. Failure to thrive 2. C-Diff Diarrhea 3. Status post bilateral pneumonia 4. Hypokalemia 5. Hypothyroid 6. Recent UTI 7. Alzheimer's dementia with behavioral changes 8. TIA 9. Atrial fibrillation 10.Parkinson's 11.COPD 12.Osteoarthritis 13.DJD spine 14.Rheumatoid arthritis 15.Dyslipidemia 16.Anemia 17.Breast Cancer, Status post right mastectomy LAST VITALS: Temperature 98.2, pulse 64, respiratory rate 14, blood pressure 108/62 and pulse ox 99. DISCHARGE INSTRUCTIONS: Discharge to [place]. Incontinent care PRN. Decubitus precautions. Turn every 2 hours. Mouth care every 4 hours. Oxygen at 2 liters per cannula. Calmoseptine Ointment topical twice a day to buttocks. Vital signs daily. Contact precautions due to C-Diff. Continue medication as listed on discharge summary. Patient is DNR per family request. Palliative care per family request. Dr. Maravilla to see on shelter rounds this week. MEDICATIONS AT DISCHARGE: Synthroid 50mcg PO QDAC Ativan 1mg IVP Q 6 hours Xarelto 20nmg PO daily ALLERGIES: No known allergies NEW PRESCRIPTIONS: Flagyl 500mg oral three times a day for 9 days Ativan 1mg oral or SL every 6 hours for restlessness/anxiety Roxanol 0.1ml (2mg) every 4-6 hours for pain as needed DIET INSTRUCTIONS: As desired ACTIVITY: Turn every 2 hours, patient is non-ambulatory SMOKING: N/A DISEASE SPECIFIC EDUCATION: Not applicable, patient is disoriented HOSPITAL COURSE: Austyn Myers who is an 81 year old female came to the emergency room with the fever, chills and coughing. Found to have left lower lobe pneumonia. At that time the patient is admitted to the hospital and started on the IV antibiotics, breathing treatments and the patient did have urinary tract infection. The patient was recently admitted to the Hospital with UTI and this time for the pneumonia. The progress was very slow with the given multiple problems in the patient. Repeat chest x-ray still has persistent pneumonia at that time the patient was admitted to the [facility] to continue antibiotics, steroids and breathing treatment. Then the patient started having the diarrhea which was positive for the stool for C-Diff positive. Started on the Flagyl. The patient's sodium meanwhile going down. Not responding much and not eating good. The patient's family doesn't want to be aggressive with the patient. Gradually the patient's condition was slowly deteriorating. Diarrhea was getting better. BUN and creatinine has improved. Did not have any problem Hgb was stable but patient kept having problem with ambulation and was not able to walk at all. Still having problem to eat. She just doesn't want to eat. Take it easy and the patient started having the pain. Morphine was started. Agitation so Ativan was started for comfort measures only but the patient outcome was not looking good at the given time and the patient's daughter who is the power of employee benefits attorney and the patient's son who also came and met her in the hospital and they were both OK with the patient's current condition and they don 't want to be doing any aggressive measures. At that time the patient was discharged back to the shelter on Morphine and Ativan and Flagyl for the C- Diff infection. She will be followed in the shelter once again. TIME SPENT: MORE THAN 65 MINUTES JOSSELYN
== END 2017-01-11 14:20 | disposition short-term general hospital (02) | DRG 194 ==
LOC: MEDSURG A 14:00
PROVIDERS: ADMIT Emergency Medicine; ATTEND Emergency Medicine
DX: J18.9 Pneumonia, unspecified organism (principal); A04.72 Enterocolitis due to Clostridium difficile, not specified as recurrent; F02.81 Dementia in other diseases classified elsewhere, unspecified severity, with behavioral disturbance; N39.0 Urinary tract infection, site not specified; R62.7 Adult failure to thrive; E03.9 Hypothyroidism, unspecified; G30.9 Alzheimer's disease, unspecified; I48.91 Unspecified atrial fibrillation; G20 Parkinson's disease; J44.9 Chronic obstructive pulmonary disease, unspecified; M19.90 Unspecified osteoarthritis, unspecified site; M47.9 Spondylosis, unspecified; M06.9 Rheumatoid arthritis, unspecified; E78.5 Hyperlipidemia, unspecified; D64.9 Anemia, unspecified; E87.6 Hypokalemia; R07.0 Pain in throat; R63.0 Anorexia; Y95 Nosocomial condition; R40.2430 Glasgow coma scale score 3-8, unspecified time; Z85.3 Personal history of malignant neoplasm of breast; Z90.10 Acquired absence of unspecified breast and nipple; Z86.73 Personal history of transient ischemic attack (TIA), and cerebral infarction without residual deficits; Z79.01 Long term (current) use of anticoagulants; Z79.2 Long term (current) use of antibiotics
CPT/HCPCS: 36415; 80053; 80202; 81001; 82962; 85007; 85025; 87493; 94640; 97802

== ENCOUNTER 2017-01-19 11:32 | Outpatient (CLI) | END 2017-01-19 11:33 | disposition home or self-care (01) | LOC: NONPT 11:32 | PROVIDERS: ATTEND Emergency Medicine | DX: A04.72 Enterocolitis due to Clostridium difficile, not specified as recurrent (principal) | CPT/HCPCS: 87493 ==